=== PATIENT | female | born 1940 | race Caucasian/White ===

== ENCOUNTER 2016-08-31 12:16 | Inpatient (IN) | payer OTHER ==
[~2016-08-31] VITALS: Ht 162.6 cm; Wt 80.3 kg
--- NOTE | 2016-08-31 07:20 | NUR ---
OPENING NOTES REPORT GIVEN AT BEDSIDE BY DAY SHIFT NURSE. PATIENT RESTING IN SEMI-MANCERA'S POSITION, NO S/S OF ACUTE DISTRESS NOTED. RESPIRATIONS EVEN AND UNLABORED. IV FLUIDS INFUSING WITH NO SIGNS OF INFILTRATION NOTED. FAMILY AT BEDSIDE. BED IN LOWEST POSITION, BED ALARM ON, CALL LIGHT WITHIN REACH. WILL CONTINUE TO MONITOR.
--- NOTE | 2016-08-31 12:16 | NUR ---
Patient to ER bed 06 to gown for evaluation. Side rails up. Report given to Alfredo
--- NOTE | 2016-08-31 12:16 | NUR ---
Pt report received from SANDRA Castro. Pt from [facility] r/t diarrhea and C. Difficile x 1 week. Family members state that pt requested to come to [facility] for admit.
--- NOTE | 2016-08-31 12:17 | NUR ---
Pt has 24 GA PIV to LHA. Area appears red and swollen. PIV discontinued with angiocath tip intact, no bleeding, drainage or discharge from site. Bandage applied.
--- NOTE | 2016-08-31 12:17 | NUR ---
Note tara in EDM - 08/31/16 at 1339 by SUDARSHAN Pt has 24 GA PIV to [facility]. Area appears red and swollen. PIV discontinued with angiocath tip intact, no bleeding, drainage or discharge from site. Bandage applied.
[2016-08-31 12:26] VITALS: BP 158/58; PULSE 62; RESP 18; TEMP 97.9; O2SAT 98
[2016-08-31] MEDS ORDERED: ONDANSETRON HCL 4 MG/2 ML VIAL IVP ONE (12:45)
[2016-08-31] MEDS ORDERED: VANCOMYCIN HCL 125 MG CAPSULE PO ONE (12:45)
[2016-08-31] MEDS ORDERED: NS 1000 ML BAG IV ONE (12:45)
--- NOTE | 2016-08-31 12:45 | NUR ---
# 20 gauge angiocath placed to LHA. Use of asceptic technique. Opsite placed over site. Blood return noted. Blood for lab drawn from site. Flushed with 10 cc of normal saline. No evidence of infiltration noted. Patient tolerated well.
[2016-08-31 13:12] LABS: BASOPHILS # (AUTO) 0.2 K/uL (0.0-0.2); BASOPHILS % (AUTO) 1.5 % (0.0-2.0); EOSINOPHILS # (AUTO) 0.2 K/uL (0.0-0.4); EOSINOPHILS % (AUTO) 2.2 % (0.0-4.0); HEMATOCRIT 31.5 % (36-48); HEMOGLOBIN 10.4 g/dL (12.0-16.0); LYMPHOCYTES # (AUTO) 1.4 K/uL (1.0-5.5); LYMPHOCYTES % (AUTO) 13.5 % (20.5-51.5); MEAN CORPUSCULAR HEMOGLOBIN 30 pg (27-31); MEAN CORPUSCULAR HGB CONC 33 % (32-36); MEAN CORPUSCULAR VOLUME 89 fL (79.0-98.0); MONOCYTES # (AUTO) 0.9 K/uL (0.0-1.0); MONOCYTES % (AUTO) 8.4 % (1.7-9.3); NEUTROPHILS # (AUTO) 7.6 K/uL (1.8-7.7); NEUTROPHILS % (AUTO) 74.4 % (40.0-70.0); PLATELET COUNT (AUTO) 452 K/uL (130-430); RED BLOOD CELL COUNT(AUTO) 3.54 MIL/uL (4.2-6.2); RED CELL DISTRIBUTION WIDTH 14.1 % (9.0-15.0); WHITE BLOOD COUNT (AUTO) 10.3 K/uL (4.8-10.8)
[2016-08-31 13:29] LABS: INR 1.2 (0.8-1.2); PROTHROMBIN TIME 13.4 SECS (9.5-12.5)
[2016-08-31 13:46] LABS: ANION GAP 4 (5-15); CALCIUM 8.3 mg/dL (8.4-11.0); CHLORIDE 102 mmol/L (98-107); CREATININE 1.32 mg/dL (0.55-1.30); GLUCOSE 203 mg/dL (70-99); POTASSIUM 2.4 mmol/L (3.5-5.1); SODIUM SERUM 138 mmol/L (136-145); UREA NITROGEN, BLOOD 2 mg/dL (8-21)
[2016-08-31 13:51] LABS: ALANINE AMINOTRANSFERASE 57 U/L (12-78); ALBUMIN 2.8 g/dL (3.4-4.8); ASPARTATE AMINOTRANSFERASE 84 U/L (10-37); TOTAL BILIRUBIN 0.6 mg/dL (0.0-1.0); TOTAL PROTEIN, SERUM 6.3 g/dL (6.4-8.3)
[2016-08-31] MEDS ORDERED: LOVI40 SQ (13:54)
[2016-08-31] MEDS ORDERED: AMLO5TAB4 PO (13:54)
[2016-08-31] MEDS ORDERED: ASPI81TA2 PO (13:54)
[2016-08-31] MEDS ORDERED: LIP40 PO (13:54)
[2016-08-31] MEDS ORDERED: metroNIDAZOLE 500 MG TABLET PO ONE (14:00)
[2016-08-31] MEDS ORDERED: KCL 20 mEq in 100 mL (PREMIX) 100 ML IV ONE (14:30)
--- NOTE | 2016-08-31 14:55 | NUR ---
Patient will be admitted to care of Dr. Guzman. Admitted to med surg unit. Will go to room 133. Summary report printed. Report given to Marylin FLORES.
[2016-08-31 14:59] LABS: BILIRUBIN,URINE NEGATIVE (NEGATIVE); BLOOD, URINE NEGATIVE (NEGATIVE); CLARITY/URINE CLEAR (CLEAR); COLOR,URINE YELLOW (YELLOW); GLUCOSE,URINE NEGATIVE (NEGATIVE); KETONES,URINE NEGATIVE (NEGATIVE); LEUKOCYTE ESTERASE ,URINE TRACE (NEGATIVE); NITRITE, URINE NEGATIVE (NEGATIVE); PH,URINE 6.5 (5.0-8.0); PROTEIN URINE NEGATIVE (NEGATIVE); UROBILINOGEN,URINE 0.2 (0.2-1.0)
--- NOTE | 2016-08-31 15:07 | NUR ---
ADMIT NOTE Received pt from ER to the floor with a diagnosis of c. diff, colitis. Admission process initiated. patient oriented to pain management, safety and call light-teach back done.
[2016-08-31 15:17] LABS: BACTERIA,URINE MANY /HPF (None Seen); MUCUS,URINE None Seen /LPF (None Seen); RBC,URINE NONE SEEN /HPF (0-3)
[2016-08-31 15:43] VITALS: BP 167/85; PULSE 95; RESP 16; TEMP 98.1; O2SAT 99
[2016-08-31 15:52] VITALS: BP 167/85; PULSE 95; RESP 16; TEMP 98.1; O2SAT 99
--- NOTE | 2016-08-31 16:06 | NUR ---
CALLED SPOKE WITH MADISYN TO PAGE DR ADAME PER SANDRA PARKER.
[2016-08-31] MEDS ORDERED: COMMUNICATION ORDER XX ONE (16:45)
--- NOTE | 2016-08-31 16:45 | NUR ---
OPENING NOTES RCEIVED PT IN BED, PT DENIES PAIN, PT C/O OF FEELING COLD AND SHIVERING FROM TIME TO TIME. AFEBRILE, PROVIDED BLANKETS REQUESTED. CALL LIGHT IN REACH, BED IN LOW POSITION. INSTRUCTED TO CALL FOR ASSIST AND PAIN MED ANY TIME
--- NOTE | 2016-08-31 17:03 | NUR ---
CONSULTATION CALLED REASON FOR CONSULT: C-DIFF PERSON WHO WAS CALLED: HOSP EXCHANGED CONSULTING DR: ADI STEIN
[2016-08-31] MEDS ORDERED: POTASSIUM CHLORIDE 60 MEQ in NS 500 ML IV ONE (17:30)
--- NOTE | 2016-08-31 18:00 | NUR ---
CLOSING NOTES, PT IN BED, FAMILY AT BEDSIDE, SET UP FOR DINNER CLEAR LIQUID DIET, 1800 MED OFFERED AND TAKEN. CALL LIGHT IN REACH, BED IN LOW POSTION. IV FLUIDS INFUSING. NO C./O PAIN.
[2016-08-31] MEDS: VANCOMYCIN HCL 250 MG CAPSULE PO SCH ×2 (18:06→23:39)
[2016-08-31] MEDS: D5NS 1,000 ML IV SCH (18:30)
--- NOTE | 2016-08-31 21:20 | NUR ---
ROUNDS NO S/S OF ACUTE DISTRESS NOTED. IV FLUIDS INFUSING WITH NO SIGNS OF INFILTRATION NOTED. IV ANTIBIOTICS INFUSING, PATIENT TOLERATING WELL. FAMILY AT BEDSIDE. BED IN LOWEST POSITION, BED ALARM ON, CALL LIGHT WITHIN REACH. WILL CONTINUE TO MONITOR.
[2016-08-31] MEDS: metroNIDAZOLE 500 mg/NS 100 ML IV SCH (21:35)
[2016-08-31 22:40] VITALS: BP 155/61; PULSE 99; RESP 20; TEMP 97.9; O2SAT 95
--- NOTE | 2016-08-31 23:46 | NUR ---
PAGED: I PAGED PHY. CARVAJAL @ [phone] I SPOKE WITH EL WEAVER MANAGER SOCIAL NUMBER I CALLED: [phone]
--- NOTE | 2016-08-31 23:46 | NUR ---
DR. WEAVER CALLED BACK @ 1354
--- NOTE | 2016-08-31 23:47 | NUR ---
DR. WENDI CEJA PATIENT IS COMPLAINING OF ANXIETY AND REQUESTING MEDICATION. PATIENT STATES, "I NEED MEDICATION FOR ANXIETY RIGHT NOW, CAN YOU PLEASE CALL THE DR."
--- NOTE | 2016-08-31 23:55 | NUR ---
CALLED ORDERS PLACED FOR ANXIETY
[2016-09-01] VITALS (7 sets, daily range): BP systolic 141–168; BP diastolic 59–76; PULSE 94–101; RESP 16–20; TEMP 97.1–99.6; O2SAT 93–100
[2016-09-01] MEDS ORDERED: LORazepam 2 MG/ML VIAL (FOR ER USE) IVP PRN
[2016-09-01] MEDS ORDERED: LORazepam 2 MG/ML VIAL IM PRN (01:15)
--- NOTE | 2016-09-01 01:59 | NUR ---
ROUNDS PATIENT IS SLEEPING WITH VISIBLE RISE AND FALL OF CHEST NOTED. NO ACUTE S/S OF DISTRESS. BED IN LOWEST POSITION, FALL PRECAUTIONS IN PLACE, BED ALARM ON. CALL LIGHT WITHIN REACH. WILL CONTINUE TO MONITOR
--- NOTE | 2016-09-01 03:50 | NUR ---
ROUNDS ASSISTED PATIENT TO BATHROOM. GAIT WAS STEADY WITH ASSIST. PATIENT NOW RESTING IN BED IN SEMI-MANCERA'S NO S/S OF ACUTE DISTRESS NOTED. FALL PRECAUTIONS IN PLACE, WILL CONTINUE TO MONITOR, CALL LIGHT WITHIN REACH.
[2016-09-01] MEDS: D5NS 1,000 ML IV SCH ×3 (04:30→18:31)
--- NOTE | 2016-09-01 06:14 | NUR ---
ROUNDS PATIENT IN BATHROOM WITH ASSIST OF RESEARCH ANIMAL ATTENDANT. GAIT WAS STEADY WITH ASSIST. PATIENT NOW RESTING IN BED IN SEMI-MANCERA'S NO S/S OF ACUTE DISTRESS NOTED. FALL PRECAUTIONS IN PLACE, WILL CONTINUE TO MONITOR, CALL LIGHT WITHIN REACH.
[2016-09-01] MEDS: VANCOMYCIN HCL 250 MG CAPSULE PO SCH ×4 (06:17→23:07)
[2016-09-01] MEDS: metroNIDAZOLE 500 mg/NS 100 ML IV SCH ×3 (06:18→20:39)
[2016-09-01 06:43] LABS: ANION GAP 6 (5-15); CALCIUM 7.9 mg/dL (8.4-11.0); CHLORIDE 106 mmol/L (98-107); CREATININE 1.21 mg/dL (0.55-1.30); GLUCOSE 135 mg/dL (70-99); POTASSIUM 3.1 mmol/L (3.5-5.1); SODIUM SERUM 142 mmol/L (136-145); UREA NITROGEN, BLOOD 3 mg/dL (8-21)
[2016-09-01 06:49] LABS: ALANINE AMINOTRANSFERASE 48 U/L (12-78); ALBUMIN 2.6 g/dL (3.4-4.8); ASPARTATE AMINOTRANSFERASE 55 U/L (10-37); TOTAL BILIRUBIN 0.6 mg/dL (0.0-1.0)
--- NOTE | 2016-09-01 07:05 | NUR ---
CLOSING NOTES PATIENT SLEEPING COMFORTABLY WITH VISIBLE RISE AND FALL OF CHEST. NO S/S OF ACUTE DISTRESS NOTED. IV PATENT AND INFUSING. DAUGHTER AT BEDSIDE. BED IN LOWEST POSITION, BED ALARM ON, CALL LIGHT WITHIN REACH. WILL ENDORSE CARE TO DAY SHIFT NURSE.
--- NOTE | 2016-09-01 08:00 | NUR ---
OPENING NOTE: RECEIVED REPORT FROM NIGHT NURSE. PATIENT IS RESTING COMFORTABLY IN BED. NO S/S OF DISTRESS OR SOB. FAMILY AT BEDSIDE. PATIENT IS ALERT AND ORIENTED, ABLE TO EXPRESS NEEDS, AND ASK FOR ASSISTANCE. VITAL SIGNS WNL, ASSESSMENT COMPLETE. IV IA PATENT AND INFUSING. CALL LIGHT IN REACH, BED IN LOWEST POSITION, AND WILL CONTINUE TO MONITOR.
--- NOTE | 2016-09-01 09:01 | NUR ---
Nutrition Update Jass Scale 16 noted. Pt admitted for C. diff colitis. Diet: clear liquid BMI: 30.4 kg/m2 RD to follow per nutrition care standards.
--- NOTE | 2016-09-01 09:14 | NUR ---
CONSULT GI C-DIFF DR RITCHIE [phone] S/W [place] OFFICE @ [phone]
[2016-09-01] MEDS: ATORVASTATIN 20 MG TABLET PO SCH (09:25)
[2016-09-01] MEDS: amLODIPine BESYLATE 5 MG TABLET PO SCH (09:25)
[2016-09-01] MEDS: POTASSIUM CHLORIDE 20 MEQ/PKT PACKET PO SCH ×2 (09:25→13:37)
[2016-09-01] MEDS: ASPIRIN 81 MG TAB.CHEW PO SCH (09:25)
--- NOTE | 2016-09-01 10:00 | NUR ---
NOTE: PATIENT IS RESTING COMFORTABLY. NO S/S OF DISTRESS OR SOB. PATIENT IS ALERT AND ORIENTED, ABLE TO EXPRESS NEEDS, AND ASK FOR ASSISTANCE. FAMILY AT BEDSIDE. CALL LIGHT IN REACH, BED IN LOWEST POSITION, AND WILL CONTINUE TO MONITOR.
--- NOTE | 2016-09-01 11:17 | NUR ---
Jass scale evaluation: Patient evaluated for a low Jass score of 16. Patient was awake, alert, oriented, and received in a Seng bed with an Isoflex DOUGLAS mattress. Low air loss therapy is initiated. Patient is able to turn in bed independently, and uses bedside commode with assist. Skin is fair; Left lower extremity has multiple areas of bruising secondary to a recent left total hip arthroplasty. Encourage and assist patient as needed with repositioning every 2 hours with pillow support, and offload pressure areas with pillows for pressure redistribution elevate, offload, and flow bilateral heels with pillows. Perform skin care and monitor skin integrity every shift. Maintain patient on a low air loss mattress.
--- NOTE | 2016-09-01 12:00 | NUR ---
NOTE: PATIENT IS RESTING COMFORTABLY IN BED. NO S/S OF DISTRESS OR SOB. PATIENT IS ALERT AND ORIENTED, ABLE TO EXPRESS NEEDS, AND ASK FOR ASSISTANCE. FAMILY AT BEDSIDE. CALL LIGHT IN REACH, BED IN LOWEST POSITION, AND WILL CONTINUE TO MONITOR.
--- NOTE | 2016-09-01 13:30 | NUR ---
DR BRENNA ADAME FOR ORDERS. SPOKE WITH LEIGHA
--- NOTE | 2016-09-01 13:55 | NUR ---
DR. ADAME SPOKE WITH DR. ADAME. FAMILY IS REQUESTING CONSULT WITH DR. ANDRADE. FAMILY STATES PATIENT HAS SARCOIDOSIS AND IS DEVELOPING A COUGHT. DR. ANDRADE WAS ON HER CASE PREVIOUSLY AND SEEING HER TWICE A DAY AND THEY WOULD LIKE HIM TO CONTINUE HIS CARE HERE. DR. ADAME SAID OKAY TO PLACE ORDER FOR PULMONARY CONSULT WITH DR. ANDRADE. ORDERS NOTED AND CARRIED OUT. FAMILY INFORMED.
--- NOTE | 2016-09-01 14:00 | NUR ---
NOTE: PATIENT IS RESTING COMFORTABLY IN BED. NO S/S OF DISTRESS OR SOB. PATIENT IS AWAKE AND ALERT. FAMILY AT BEDSIDE. CALL LIGHT IN REACH, BED IN LOWEST POSITION, AND WILL CONTINUE TO MONITOR.
--- NOTE | 2016-09-01 14:15 | NUR ---
CONSULT PULMO COUGH DR ANDRADE [phone] S/W [place] OFFICE @[phone]
[2016-09-01 16:14] LABS: POTASSIUM 3.9 mmol/L (3.5-5.1)
--- NOTE | 2016-09-01 16:28 | NUR ---
MD BRENNA CEJA FOR CRITICAL LAB VALUE RESULT
[2016-09-01] MEDS ORDERED: MAGNESIUM SULFATE 50 ML IV ONE (16:45)
--- NOTE | 2016-09-01 16:45 | NUR ---
ORDERS DR. ADAME ORDERED MAGNESIUM 2GM IV ONE TIME DOSE. ORDERS NOTED AND CARRIED OUT.
[2016-09-01] MEDS ORDERED: ENOXAPARIN SODIUM 40 MG/0.4 ML SYRINGE SUBCUT SCH (17:45)
[2016-09-01] MEDS ORDERED: D5NS 1,000 ML IV SCH (17:45)
[2016-09-01] MEDS ORDERED: LACTOBACILLUS RHAMNOSUS GG 1 CAP CAPSULE PO ONE (18:15)
[2016-09-01] MEDS ORDERED: COMMUNICATION ORDER XX ONE (18:15)
[2016-09-01] MEDS: MONTELUKAST 10 MG TABLET PO SCH (18:30)
--- NOTE | 2016-09-01 18:50 | NUR ---
CLOSING NOTE: PATIENT IS RESTING COMFORTABLY IN BED. NO S/S OF DISTRESS OR SOB. PATIENT IS ALERT AND ORIENTED, ABLE TO EXPRESS NEEDS, AND ASK FOR ASSISTANCE. FAMILY IS AT BEDSIDE. CALL LIGHT IN REACH, BED IN LOWEST POSITION, AND WILL GIVE REPORT TO NIGHT NURSE.
--- NOTE | 2016-09-01 19:25 | NUR ---
INITIAL ROUNDS RECVD PT IN BED, A/A/O X3 WITH DAUGHTER @ BEDSIDE. NO S/S OF ANY PAIN. IV NOTED TO L HAND G 20, NO INFILTRATE WITH GOOD BLOOD RETURN. BUE ARE STRONG WITH MILD WEAKNESS TO BLE, AMBULATORY WITH WALKER AND WITH ASSIST. DISCUSSED PLAN OF CARE WITH PT AND VERBALIZED UNDERSTANDING. BED IN LOW POSITION WITH CALL LIGHT WITHIN REACH. WILL CONT TO MONITOR
[2016-09-01] MEDS: IPRATROPIUM/ALBUTEROL SULFATE 3 ML AMPUL.NEB INH SCH (20:07)
[2016-09-01] MEDS: LACTOBACILLUS RHAMNOSUS GG 1 CAP CAPSULE PO SCH (20:38)
[2016-09-01] MEDS: ADVAIR INH SCH (20:46)
--- NOTE | 2016-09-01 21:25 | NUR ---
ASSISTED TO COMMODE ASSISTED PT TO COMMODE AND SAFELY BACK TO BED WITH ISHMAEL CHILDERS. NO S/S OF ANY PAIN AND NO DISTRESS NOTED. DAUGHTER @ BEDSIDE.CALL LIGHT WITHIN REACH, WILL CONT TO MONITOR.
--- NOTE | 2016-09-01 23:25 | NUR ---
ROUNDS PT IS RESTING COMFORTABLY WITH DAUGHTER AT BEDSIDE. NO S/S OF ANY PAIN OR DISTRESS NOTED. BED IN LOW POSITION WITH CALL LIGHT WITHIN REACH. WILL CONT TO MONITOR.
[2016-09-02 00:19] VITALS: BP 155/70; PULSE 107; RESP 18; TEMP 99; O2SAT 92
--- NOTE | 2016-09-02 00:19 | NUR ---
FOLLOW-UP ON CONSULTATION PAGED REASON FOR CONSULTATION:C.DIFF, COLITIS WAS CONSULT CALLED?Y PERSON WHO WAS NOTIFIED:MARK CONSULTING PHYSICIAN:EVER COOMBS CITY PLANT SUPERVISOR SPECIALTY:INFEXTIOUS DISEASE CITY PLANT SUPERVISOR PHONE NUMBER:[phone]
--- NOTE | 2016-09-02 01:25 | NUR ---
ASSISTED TO COMMODE PT WAS ASSISTED TO COMMODE BY ISHMAEL CHILDERS. PT REFUSED TO BE ASSISTED BY MALE NURSE D/T BUDDHIST BELIEFS. BED IN LOW POSITION WITH CALL LIGHT WITHIN REACH. WILL CONT TO MONITOR.
--- NOTE | 2016-09-02 03:07 | NUR ---
TEMP 99.8 PT'S DAUGHTER INSISTING THAT HER MOTHER HAS A FEVER. I EXPLAINED TO DAUGHTER THAT WE ONLY CONSIDER FEVER IF TEMP IS 100.4 AND ABOVE. REMOVED 3 BLANKETS FROM PT AND GAVE COOLING MEASURES. WILL RECHECK TEMP AGAIN.
[2016-09-02 04:45] VITALS: BP 158/72; PULSE 96; RESP 18; TEMP 99; O2SAT 92
[2016-09-02] MEDS: VANCOMYCIN HCL 250 MG CAPSULE PO SCH ×4 (06:23→23:10)
[2016-09-02] MEDS: metroNIDAZOLE 500 mg/NS 100 ML IV SCH ×3 (06:23→21:35)
[2016-09-02] MEDS: LEVOTHYROXINE SODIUM 0.05 MG TABLET PO SCH (06:24)
--- NOTE | 2016-09-02 07:00 | NUR ---
FINAL ROUNDS PT IS RESTING @ THIS TIME. NO S/S OF PAIN OR ANY DISTRESS. V/S ARE WNL. ALL NEEDS MET AND ANTICIPATED BY NOC NURSES. BED IN LOW POSITION WITH SIDE RAILS UP X 2 FOR SAFETY. CALL LIGHT WITHIN REACH; ENDORSED.
--- NOTE | 2016-09-02 07:30 | NUR ---
rn notes: patient is aaox 4. afebrile. vss stable. has iv access on the left hand 320.D5ns at 70cc/hr infusing on well. daughter at the bedside. hob of bed elevated. bed in low position. call lights within reach. safety measures maintained. no sob nor distress noted. non productive cough with small phelgm noted. informed patient to [facility] for assistance. still on contact isolation for c dificile precaution.
[2016-09-02 07:34] LABS: ALANINE AMINOTRANSFERASE 38 U/L (12-78); ALBUMIN 2.6 g/dL (3.4-4.8); ANION GAP 4 (5-15); ASPARTATE AMINOTRANSFERASE 33 U/L (10-37); CALCIUM 7.8 mg/dL (8.4-11.0); CHLORIDE 104 mmol/L (98-107); CREATININE 0.96 mg/dL (0.55-1.30); GLUCOSE 138 mg/dL (70-99); SODIUM SERUM 140 mmol/L (136-145); TOTAL BILIRUBIN 0.5 mg/dL (0.0-1.0); TOTAL PROTEIN, SERUM 5.7 g/dL (6.4-8.3); UREA NITROGEN, BLOOD 1 mg/dL (8-21)
[2016-09-02 07:40] LABS: POTASSIUM 2.9 mmol/L (3.5-5.1)
[2016-09-02 07:48] LABS: BASOPHILS % (AUTO) 0.1 % (0.0-2.0); EOSINOPHILS # (AUTO) 0.3 K/uL (0.0-0.4); EOSINOPHILS % (AUTO) 3.5 % (0.0-4.0); HEMATOCRIT 31.4 % (36-48); HEMOGLOBIN 10.2 g/dL (12.0-16.0); LYMPHOCYTES # (AUTO) 1.5 K/uL (1.0-5.5); LYMPHOCYTES % (AUTO) 16.6 % (20.5-51.5); MEAN CORPUSCULAR HEMOGLOBIN 29 pg (27-31); MEAN CORPUSCULAR HGB CONC 32 % (32-36); MEAN CORPUSCULAR VOLUME 90 fL (79.0-98.0); MONOCYTES % (AUTO) 10.8 % (1.7-9.3); NEUTROPHILS # (AUTO) 6.1 K/uL (1.8-7.7); PLATELET COUNT (AUTO) 403 K/uL (130-430); RED BLOOD CELL COUNT(AUTO) 3.49 MIL/uL (4.2-6.2); RED CELL DISTRIBUTION WIDTH 14.4 % (9.0-15.0); WHITE BLOOD COUNT (AUTO) 8.9 K/uL (4.8-10.8)
--- NOTE | 2016-09-02 08:03 | NUR ---
PATIENT HAS NON PRODUCTIVE COUGH NOTED. BUT NO SOB NOTED. VSS STABLE. DAUGHTER AT THE BEDSIDE.
[2016-09-02 08:29] VITALS: BP 157/77; PULSE 97; RESP 18; TEMP 98.9; O2SAT 92
--- NOTE | 2016-09-02 09:00 | NUR ---
dr bullock is aware of the coughing status. he saw and made orders.
[2016-09-02] MEDS: IPRATROPIUM/ALBUTEROL SULFATE 3 ML AMPUL.NEB INH SCH ×3 (09:04→20:13)
[2016-09-02] MEDS: amLODIPine BESYLATE 5 MG TABLET PO SCH (09:35)
[2016-09-02] MEDS: LACTOBACILLUS RHAMNOSUS GG 1 CAP CAPSULE PO SCH ×2 (09:35→21:36)
[2016-09-02] MEDS: ASPIRIN 81 MG TAB.CHEW PO SCH (09:35)
[2016-09-02] MEDS: CLOPIDOGREL BISULFATE 75 MG TABLET PO SCH (09:36)
[2016-09-02] MEDS: ATORVASTATIN 20 MG TABLET PO SCH (09:36)
--- NOTE | 2016-09-02 09:37 | NUR ---
due medication given. made comfortable. assists on adls.
[2016-09-02 12:31] VITALS: BP 140/63; PULSE 100; RESP 16; TEMP 98; O2SAT 97
--- NOTE | 2016-09-02 13:23 | NUR ---
patient is sitting on the chair. son is at the bedside. patient is stable. no pain nor distress noted.
[2016-09-02] MEDS: BENZONATATE 100 MG CAPSULE (TESSALON) PO PRN (13:27)
[2016-09-02] MEDS: POTASSIUM CHLORIDE 20 MEQ TAB.PRT.SR PO SCH ×2 (13:27→15:16)
[2016-09-02] MEDS: D5NS 1,000 ML IV SCH (13:30)
[2016-09-02] MEDS: ADVAIR INH SCH ×2 (13:33→21:36)
[2016-09-02] MEDS ORDERED: MAGNESIUM SULFATE 50 ML IV ONE (14:45)
[2016-09-02] MEDS: POTASSIUM CHLORIDE 10 MEQ in 0.45% NACL 1,000 ML IV SCH (15:18)
--- NOTE | 2016-09-02 15:30 | NUR ---
magnesium sulfate 2 grams iv given on the right forearm.
--- NOTE | 2016-09-02 16:20 | NUR ---
patient is asleep at this time
[2016-09-02 16:36] VITALS: BP 144/69; PULSE 97; RESP 17; TEMP 97.8; O2SAT 97
[2016-09-02] MEDS: MONTELUKAST 10 MG TABLET PO SCH (17:04)
--- NOTE | 2016-09-02 17:04 | NUR ---
patient sitting in bed. stable. no pain other daughter at the bedside.
--- NOTE | 2016-09-02 18:18 | NUR ---
patient is eating at the bedside. hob elevated. with the daughter at the bedside.
--- NOTE | 2016-09-02 19:15 | NUR ---
OPENING NOTES REPORT GIVEN AT BEDSIDE BY DAY SHIFT NURSE. PATIENT IS RESTING IN SEMI-MANCERA'S POSITION WITH DAUGHTER AT BEDSIDE. IV IS PATENT AND RUNNING. NO S/S OF DISTRESS NOTED. BED IN LOWEST POSITION, BED ALARM ON, CALL LIGHT WITHIN REACH. WILL CONTINUE TO MONITOR.
--- NOTE | 2016-09-02 19:30 | NUR ---
sbar report given to incoming nurse Misty Ardon.
[2016-09-02 19:55] VITALS: BP 136/54; PULSE 113; RESP 30; TEMP 99; O2SAT 90
--- NOTE | 2016-09-02 20:20 | NUR ---
ROUNDS PATIENT IS BREATHING SHALLOW WITH RESPIRATIONS OF 32 AND OXYGEN SATURATION OF 88-89%. LUNGS HAVE A WHEEZE BILATERAL IN UPPER LOBES, AND CRACKLES NOTED IN LOWER LOBES. PATIENT DOES HAVE A HISTORY OF COPD AND SARCOIDOSIS. O2 APPLIED AT 2L BY NASAL CANNULA. FALL PRECAUTIONS IN PLACE, WILL CONTINUE TO MONITOR FREQUENTLY.
--- NOTE | 2016-09-02 21:33 | NUR ---
ROUNDS PATIENT IS SITTING IN SEMI-MANCERA'S POSITION WITH NASAL CANNULA AT 2L. OXYGEN STAURATIONS ARE. BREATHING IS EVEN AND UNLABORED. PATIENT IS COUGHING. NO S/S OF ACUTE DISTRESS NOTED. WILL CONTINUE TO MONITOR. FALL PREACUTIONS IN PLACE AND DAUGHTER AT BEDSIDE. CALL LIGHT WITHIN REACH.
--- NOTE | 2016-09-03 | NUR ---
ROUNDS PATIENT BREATHING LABORED AND EVEN. OXYGEN TITRATION LOWERED TO 1L AND PATIENT O2 SAT AT 93%. TEMPERATURE HAS RISEN FROM 99F AT 1955 TO 99.7, COOLING MEASURES OF WET CLOTH AND ICE PACKS TAKEN. PATIENT IS CLAMMY AND WARM TO TOUCH. PATIENT STATES SHE IS SHIVERING. WILL CONTINUE TO MONITOR TEMPERATURE FREQUENTLY. DAUGHTER AT BEDSIDE. FALL PRECAUTIONS IN PLACE, BED ALARM ON, CALL LIGHT WITHIN REACH.
[2016-09-03] MEDS: BENZONATATE 100 MG CAPSULE (TESSALON) PO PRN ×3 (00:11→18:26)
[2016-09-03 00:49] VITALS: BP 142/62; PULSE 113; RESP 16; TEMP 99.7; O2SAT 93
--- NOTE | 2016-09-03 02:00 | NUR ---
ROUNDS PATIENT RESTING, SLEEPING, WITH VISIBLE RISE AND FALL OF CHEST NOTED. NASAL CANNULA IN PLACE, IV FLUIDS RUNNING. NO S/S OF DISTRESS NOTED. FALL PRECAUTIONS IN PLACE. BED ALARM ON, CALL LIGHT WITHIN REACH. WILL CONTINUE TO MONITOR FREQUENTLY.
--- NOTE | 2016-09-03 02:50 | NUR ---
PAGED FOR ORDERS PATIENT IS ANXIOUS AND REQUESTED SOMETHING FOR ANXIETY. THERE ARE NO MEDS FOR ANXIETY, PAGEJan FOR ORDERS
[2016-09-03 03:58] VITALS: BP 133/56; PULSE 111; RESP 15; TEMP 97.5; O2SAT 96
--- NOTE | 2016-09-03 04:03 | NUR ---
PAGED DR ADAME FOR ORDERS, SPOKE WITH CHRISTI, PHONE NUMBER
--- NOTE | 2016-09-03 04:03 | NUR ---
PAGED FOR ORDERS, 2ND PAGE PATIENT IS ANXIOUS AND REQUESTED SOMETHING FOR ANXIETY. THERE ARE NO MEDS FOR ANXIETY, PAGED FOR ORDERS
--- NOTE | 2016-09-03 04:20 | NUR ---
PAGED FOR ORDERS, 3RD PAGE PATIENT IS ANXIOUS AND REQUESTED SOMETHING FOR ANXIETY. THERE ARE NO MEDS FOR ANXIETY, PAGED FOR ORDERS
--- NOTE | 2016-09-03 04:24 | NUR ---
PAGED DR ADAME Spoke with Alfredo , phone number [phone]
--- NOTE | 2016-09-03 04:30 | NUR ---
DR. CEJA WITH ORDERS ORDERS FOR ATIVAN Q4 IVP 0.25MG PRN
[2016-09-03] MEDS ORDERED: LORazepam 2 MG/ML VIAL IM PRN (04:45)
--- NOTE | 2016-09-03 04:53 | NUR ---
ANTI-ANXIETY MEDICATION PATIENT GIVEN THE ORDERED DOSE OF ANTI-ANXIETY MEDICATION. WILL REASSESS. NO S/S OF ACUTE DISTRESS NOTED. FALL PRECAUTIONS IN PLACE. DAUGHTER AT BEDSIDE. CALL LIGHT WITHIN REACH. WILL CONTINUE TO MONITOR FREQUENTLY.
[2016-09-03] MEDS: VANCOMYCIN HCL 250 MG CAPSULE PO SCH ×3 (06:17→18:21)
[2016-09-03] MEDS: LEVOTHYROXINE SODIUM 0.05 MG TABLET PO SCH (06:17)
[2016-09-03] MEDS: metroNIDAZOLE 500 mg/NS 100 ML IV SCH ×3 (06:18→21:31)
--- NOTE | 2016-09-03 06:27 | NUR ---
CLOSING NOTES PATIENT IS RESTING, AWAKE AND ALERT. DAUGHTER AT BEDSIDE, PATIENT STATES SHE IS NERVOUS. IV FLUIDS AND ANTIBIOTICS INFUSING, PATIENT TOLERATING WELL. BED IN LOWEST POSITION, BED ALARM ON, CALL LIGHT IN RIGHT HAND. WILL ENDORSE CARE TO DAY SHIFT.
--- NOTE | 2016-09-03 06:45 | NUR ---
PAIN PATIENT IS COMPLAINING OF PAIN 7/10 THROUGHOUT LEFT LEG. CURRENTLY NO PAIN MEDS ARE ORDERE. WILL PAGE FOR ORDERS.
--- NOTE | 2016-09-03 06:54 | NUR ---
DR. ADAME PAGED FOR ORDERS
--- NOTE | 2016-09-03 06:55 | NUR ---
DR. ADAME CALLED WITH ORDERS FOR PAIN MEDICATION.
[2016-09-03 06:56] LABS: ANION GAP 5 (5-15); CALCIUM 8.1 mg/dL (8.4-11.0); CHLORIDE 104 mmol/L (98-107); CREATININE 0.91 mg/dL (0.55-1.30); GLUCOSE 128 mg/dL (70-99); POTASSIUM 4.3 mmol/L (3.5-5.1); SODIUM SERUM 138 mmol/L (136-145); UREA NITROGEN, BLOOD 3 mg/dL (8-21)
[2016-09-03] MEDS ORDERED: HYDROcodone/ACETAMIN 5-325 MG TAB (NORCO/ VICODIN) PO PRN (07:00)
--- NOTE | 2016-09-03 07:20 | NUR ---
ADMINISTERED PAIN MEDICATION, WILL ENDORSE REASSESSMENT TO DAY SHIFT NURSE.
--- NOTE | 2016-09-03 07:30 | NUR ---
Initial Notes Pt asleep. No signs of facial grimacing for pain or discomfort. No distress noted. Daughter at bedside. Encouraged to call for assistance. Will monitor.
[2016-09-03 08:35] VITALS: BP 145/66; PULSE 100; RESP 21; TEMP 97.2; O2SAT 92
--- NOTE | 2016-09-03 09:00 | NUR ---
AM Notes Pt aaox4 but Belarusian speaking only. No complaints of pain or discomfort at this time. No sob, difficulty breathing or distress noted. O2 via nasal canula @ 1L in place. Healing left hip incision noted. Bilateral scd in place. Educated about fall and safety precautions. Encouraged to call for assistance. Call light within reach. Will monitor.
--- NOTE | 2016-09-03 09:00 | NUR ---
Dr. Sveta MYERS doing rounds. Plan of care discussed with daughter and patient.
[2016-09-03] MEDS: IPRATROPIUM/ALBUTEROL SULFATE 3 ML AMPUL.NEB INH SCH ×3 (09:16→21:12)
--- NOTE | 2016-09-03 10:00 | NUR ---
Rounds Pt asleep. No signs of facial grimacing for pain or discomfort. No distress noted. Daughter at bedside. Will monitor.
[2016-09-03] MEDS: ADVAIR INH SCH ×2 (10:14→21:30)
[2016-09-03] MEDS: ATORVASTATIN 20 MG TABLET PO SCH (10:15)
[2016-09-03] MEDS: ASPIRIN 81 MG TAB.CHEW PO SCH (10:16)
[2016-09-03] MEDS: CLOPIDOGREL BISULFATE 75 MG TABLET PO SCH (10:16)
[2016-09-03] MEDS: amLODIPine BESYLATE 5 MG TABLET PO SCH (10:16)
[2016-09-03] MEDS: LACTOBACILLUS RHAMNOSUS GG 1 CAP CAPSULE PO SCH ×2 (10:16→21:30)
--- NOTE | 2016-09-03 11:35 | NUR ---
INSPECTOR MULTIFOCAL LENS called and spoke with PA Foreign Trade Teacher, Carmen ([phone]), to inform her of pt's discharge order. Carmen states that she is aware and is following up regarding pt's discharge needs.
[2016-09-03 12:33] VITALS: BP 142/64; PULSE 94; RESP 17; TEMP 97.8; O2SAT 95
--- NOTE | 2016-09-03 12:34 | NUR ---
Rounds Pt awake assisted to bedside commode. No complaints of pain or discomfort. No distress noted. Assisted back to bed and kept comfortable. Encouraged to call for assistance. Will monitor.
--- NOTE | 2016-09-03 13:50 | NUR ---
CALLED VASHTI MYERS, DR RITCHIE, RE: CLEARANCE TO BE DISCHARGE TO HOME. SPOKE TO QUEENIE
--- NOTE | 2016-09-03 13:51 | NUR ---
CALLED RUG CLIPPER, DR DON, RE: CLEARANCE TO DISCHARGE PT HOME. SPOKE TO MARIA DEL CARMEN
--- NOTE | 2016-09-03 13:59 | NUR ---
Dr. Bangura Called and spoke with MD if patient cleared to be discharged home. MD ordered patient is cleared to be discharged home.
--- NOTE | 2016-09-03 14:08 | NUR ---
Dr. Lopes Called and spoke with MD. From her stand point patient is cleared to be discharged. MD will be coming in an hour.
--- NOTE | 2016-09-03 15:54 | NUR ---
Rounds Pt asleep. No significant changes noted. Kept comfortable. Will continue to monitor.
[2016-09-03 16:01] VITALS: BP 139/64; PULSE 92; RESP 16; TEMP 97.6; O2SAT 95
[2016-09-03] MEDS: MONTELUKAST 10 MG TABLET PO SCH (18:21)
--- NOTE | 2016-09-03 18:37 | NUR ---
Page Dr. Guzman for orders Spoke with Faisal, Phone number [phone]
--- NOTE | 2016-09-03 18:45 | NUR ---
Closing Notes Pt awake resting in bed with no significant changes noted. Kept comfortable. Encouraged to call for assistance. Call light within reach. Will endorse care to incoming nurse.
--- NOTE | 2016-09-03 19:29 | NUR ---
paged Dr. Guzman (Dr. Jackson digital controls technical officer) Spoke with Karen, phone [phone]
--- NOTE | 2016-09-03 19:50 | NUR ---
INITIAL NOTES: PT A/O X3, SYRIAC SPEAKING, FAMILY AT BEDSIDE ; NOT IN ANY ACUTE DISTRESS; VITALS ARE STABLE ; DENIED ANY PAIN OR DISCOMFORT AT THIS TIME; ASSESSMENT DONE ; NOTICED BRUISES TO BOTH ARMS , THIGH, AND ABDOMEN ; LEFT HIP WITH HEALED INCISION;PT IS COUGHING OCCASIONALLY , MEDICATED EARLIER ; ON ROOM AIR AT THIS TIME; 91% ,PT HAS THE H/O COPD ; O2 NOTED AT BEDSIDE , WILL MONITOR ; BED IN LOW AND LOCK POSITION ; CALL ARREOLA IN REACH . WILL CONTINUE TO MONITOR. Addendum: 09/04/16 at 0040 by Justine Catalan RN FAMILY STATED THAT PT NEEDS ATIVAN , SHE GETS ANXIOUS AT TIMES , INFORMED DAUGHTER THAT THERE IA AN ORDER FOR ATIVAN IM ,WILL GIVE WHEN SHE GET ANXIOUS , DAUGHTER STATED THEY DONT WANT TO GIVE HER IM ; INFORMED FAMILY THAT WILL CALL MD TO GET A NEW ORDER .
[2016-09-03 20:00] VITALS: BP 148/65; PULSE 102; RESP 18; TEMP 98.8; O2SAT 91
--- NOTE | 2016-09-03 20:19 | NUR ---
paged Dr. Monroe for orders [phone], spoke with Alfredo
--- NOTE | 2016-09-03 20:40 | NUR ---
CALLED BACK : DR WEAVER CALLED BACK ; INFORMED MD THAT ; PER FAMILY PT GET ANXIOUS SOME TIMES AND NEEDS ATIVAN , PER THE ORDER ATIVAN 0.25 MG IS IM , BUT THE FAMILY DON'T WANT TO GIVE HER IM DOSE . MD ORDERED TO CHANGE THE ORDER TO ATIVAN 0.5 MG PO Q6HRS PRN
[2016-09-03] MEDS: POTASSIUM CHLORIDE 10 MEQ in 0.45% NACL 1,000 ML IV SCH (21:32)
--- NOTE | 2016-09-03 21:35 | NUR ---
MEDICATION: DUE MEDS GIVEN ; PT IS COMFORTABLE ; NOT IN ANY ACUTE DISTRESS ; WILL CONTINUE TO MONITOR.
[2016-09-04] VITALS (7 sets, daily range): BP systolic 144–159; BP diastolic 67–74; PULSE 102–115; RESP 17–22; TEMP 97.2–98.6; O2SAT 92–96
--- NOTE | 2016-09-04 | NUR ---
RN NOTES: PT FAMILY CALLED AND STATED THAT SHE IS WET , PT CLEANED , LINEN AND CHUX CHANGED ;PT TURNED AND REPOSITIONED ; AFTER THAT PT COUGHED AND VOMITED 25 CC WITH PHELM ; ON ROOM AIR SAT 92 % AT THIS TIME ; WILL MONITOR PT ; PT STATED SHE FEELS COMFORTABLE NOW
[2016-09-04] MEDS: VANCOMYCIN HCL 250 MG CAPSULE PO SCH ×4 (00:11→17:55)
--- NOTE | 2016-09-04 01:41 | NUR ---
RN ROUNDS: PT IS SLEEPING,NOT IN ANY ACUTE DISTRESS; DAUGHTER AT BEDSIDE ; WILL CONTINUE TO MONITOR.
[2016-09-04] MEDS: BENZONATATE 100 MG CAPSULE (TESSALON) PO PRN ×3 (02:00→16:36)
--- NOTE | 2016-09-04 02:20 | NUR ---
RN NOTES: ASSISTED PT TO THE BEDSIDE COMMODE WITH ASSISTANCE ; PT VOIDED WELL ; CLEANED PT , PT STATED SHE WANTS TO SIT ; ASSISTED PT TO CHAIR ; PT IS COMFORTABLE ; NOT IN ANY ACUTE DISTRESS; PT ASKED FOR ATIVAN , INFORMED PT THAT WILL GIVE IT ONCE SHE IS BACK TO BED . INFORMED AN TO MONITOR PT WHILE RN GOING FOR BREAK .
[2016-09-04] MEDS: LORazepam 1 MG TABLET PO PRN ×3 (03:02→20:38)
--- NOTE | 2016-09-04 03:03 | NUR ---
MEDICATION: PT IS LYING ON THE BED , AWAKE , PER ORDER ATIVAN GIVEN TO THE PATIENT ,DAUGHTER STATED PT VOMITED AGAIN A LITTLE ; WILL MONITOR PT .
--- NOTE | 2016-09-04 03:28 | NUR ---
RN NOTES: NOTICED THAT PTS O2 SAT IS DROPPING WHILE SLEEPING, PLACED PT BACK TO O2 2L NC ; SAT WENT UP TO 95% ; WILL CONTINUE TO MONITOR PT .
--- NOTE | 2016-09-04 04:49 | NUR ---
RN NOTES: ASSISTED PT TO THE BSC , PT VOIDED WELL , LINEN , CHUX AND GOWN CHANGED ; ASSISTED PT BACK TO BED ; PT IS COMFORTABLE . WILL CONTINUE TO MONITOR.
--- NOTE | 2016-09-04 05:20 | NUR ---
RN NOTES: ASSISTED PT TO THE BSC , PT VOIDED WELL , CHUX CHANGED ; ASSISTED PT BACK TO BED ; PT IS COMFORTABLE . WILL CONTINUE TO MONITOR.
[2016-09-04] MEDS: metroNIDAZOLE 500 mg/NS 100 ML IV SCH ×3 (06:04→20:38)
[2016-09-04] MEDS: LEVOTHYROXINE SODIUM 0.05 MG TABLET PO SCH (06:07)
--- NOTE | 2016-09-04 06:49 | NUR ---
CLOSING NOTES: PT IS SLEEPING COMFORTABLY; NOT IN ANY ACUTE DISTRESS; NO SIGNIFICANT CHANGES IN THE CONDITION ; ON ROOM AIR AT THIS TIME.WILL CONTINUE TO MONITOR AND WILL ENDORSE TO NEXT SHIFT NURSE.
--- NOTE | 2016-09-04 07:30 | NUR ---
Initial Note RECEIVED PATIENT FROM CYTOLOGY SUPERVISOR NURSE, PATIENT IS UP, SITTING ON EDGE OF BED, DAUGHTER IS AT BEDSIDE, NO SIGNS OF DISTRESS, NO COMPLAINTS OF PAIN OR DISCOMFORT, ASSESSMENT COMPLETE, PATIENT IS ALERT AND ORIENTED X 4, ON ROOM AIR AT 92%, PATIENT HAS IV ON RIGHT FOREARM WITH FLUIDS INFUSING, NO SIGNS OF INFILTRATION NOTED, PATIENT HAS BRUISING ON BOTH ARMS, THIGHS, AND LOWER RIGHT ABDOMEN, INSTRUCTED PATIENT TO USE CALL ARREOLA IF ASSISTANCE IS NEEDED, PATIENT VERBALIZED UNDERSTANDING, CALL ARREOLA LEFT IN HAND, BED IN LOWEST POSITION, BED ALARM ON, TWO SIDE RAILS UP FOR PATIENT'S SAFETY, FALL PRECAUTIONS IN PLACE, WILL CONTINUE TO MONITOR PATIENT.
[2016-09-04] MEDS: ADVAIR INH SCH ×2 (08:12→21:05)
[2016-09-04] MEDS: ATORVASTATIN 20 MG TABLET PO SCH (08:12)
[2016-09-04] MEDS: LACTOBACILLUS RHAMNOSUS GG 1 CAP CAPSULE PO SCH ×2 (08:13→20:37)
[2016-09-04] MEDS: amLODIPine BESYLATE 5 MG TABLET PO SCH (08:13)
[2016-09-04] MEDS: ASPIRIN 81 MG TAB.CHEW PO SCH (08:13)
[2016-09-04] MEDS: CLOPIDOGREL BISULFATE 75 MG TABLET PO SCH (08:13)
--- NOTE | 2016-09-04 08:15 | NUR ---
MEDICATIONS MORNING MEDICATIONS GIVEN TO PATIENT, EDUCATED PATIENT AND DAUGHTER AT BEDSIDE ON POTENTIAL SIDE EFFECTS OF MEDICATIONS, BOTH VERBALIZED UNDERSTANDING, NO OTHER NEEDS AT THIS TIME, WILL CONTINUE TO MONITOR, CALL ARREOLA LEFT IN PATIENT'S HAND, FALL PRECAUTIONS IN PLACE.
--- NOTE | 2016-09-04 09:58 | NUR ---
RN ROUNDS PATIENT IS CURRENTLY BEING SEEN BY PHYSICAL THERAPY, WILL CONTINUE TO MONITOR PATIENT
[2016-09-04] MEDS: IPRATROPIUM/ALBUTEROL SULFATE 3 ML AMPUL.NEB INH SCH ×2 (10:20→15:38)
--- NOTE | 2016-09-04 11:30 | NUR ---
DR. OWEN WEAVER SEEN PATIENT, PATIENT AND FAMILY MEMBERS EXPRESSED CONCERNS ABOUT MOTHER'S INCREASED COUGHING AND WEAKNESS, DR. CHARLES WAS ALSO HERE AND SEEN THE PATIENT, DR. CHARLES ORDERED FOR PATIENT TO HAVE ONE TIME DOSE OF LASIX IV PUSH, PREDNISONE 5MG DAILY AND HE ASLO ORDERED A CXR, PER DR. WEAVER PATIENT WILL NOT BE DISCHARGED AT THIS TIME, WILL FOLLOW UP
--- NOTE | 2016-09-04 11:32 | NUR ---
PAGED DR WEAVER (PHYS ASSOC) , ESTEFANI ASTUDILLO
--- NOTE | 2016-09-04 11:48 | NUR ---
PAGED DR WEAVER, NEW UPDATE/ORDERS
--- NOTE | 2016-09-04 12:00 | NUR ---
RN ROUNDS ASSISTED PATIENT BACK TO BED WITH HELP OF ADN NURSE, PATIENT STATED SHE WAS READY TO LIE BACK DOWN, GETTING SLEEPY WHILE SITTING IN CHAIR, NO OTHER NEEDS AT THIS TIME, CALL ARREOLA WITHIN REACH, FALL PRECAUTIONS IN PLACE, WILL CONTINUE TO MONITOR PATIENT.
--- NOTE | 2016-09-04 13:22 | NUR ---
RN ROUNDS ASSISTED PATIENT BACK TO BED FROM BEDSIDE COMMODE, PATIENT TOLERATED FAIRLY, INSTRUCTED PATIENT TO USE CALL ARREOLA IF ASSISTANCE IS NEEDED, PATIENT AND FAMILY VERBALIZED UNDERSTANDING, WILL CONTINUE TO MONITOR PATIENT. FALL PRECAUTIONS IN PLACE.
[2016-09-04] MEDS ORDERED: FUROSEMIDE 20 MG/2 ML VIAL IVP ONE (13:45)
[2016-09-04] MEDS ORDERED: PREDNISONE 5 MG TABLET PO ONE (14:15)
--- NOTE | 2016-09-04 14:25 | NUR ---
RN ROUNDS PATIENT RECEIVED MEDICATIONS PER ORDERED BY PULMICHAEL SHETTY AND DR. WEAVER, EDUCATED PATIENT AND FAMILY MEMBERS OF POTENTIAL SIDE EFFECTS, BOTH VERBALIZED UNDERSTANDING, CALL [facility] LEFT NEXT TO PATIENT HAND, BED IN LOWEST POSITION, TWO SIDE RAILS UP, FALL PRECAUTIONS IN PLACE, WILL CONTINUE TO MONITOR PATIENT.
--- NOTE | 2016-09-04 15:05 | NUR ---
RN ROUNDS PATIENT IS STATING SHE IS GETTING VERY ANXIOUS, PRN MEDICATION WAS GIVEN WILL REASSESS
[2016-09-04] MEDS ORDERED: NON-FORMULARY MEDICATION PO SCH (16:10)
[2016-09-04] MEDS ORDERED: FAMOTIDINE 20 MG TABLET PO ONE (16:15)
--- NOTE | 2016-09-04 17:36 | NUR ---
RN ROUNDS PATIENT IS CURRENTLY UP TALKING TO FAMILY WHO IS AT BEDSIDE, NO NEEDS AT THIS TIME, WILL CONTINUE TO MONITOR PATIENT.
[2016-09-04] MEDS: MONTELUKAST 10 MG TABLET PO SCH (17:55)
--- NOTE | 2016-09-04 18:45 | NUR ---
CLOSING NOTES PATIENT IS CURRENTLY RESTING IN BED, NO COMPLAINTS OF PAIN, NO SIGNS OF DISTRESS NOTED, SON IS AT BEDSIDE, ALL NEEDS MET, CALL ARREOLA LEFT IN PATIENT'S HAND, BED IN LOWEST POSITION, BED ALARM ON, TWO SIDE RAILS UP, FALL PRECAUTIONS IN PLACE.
--- NOTE | 2016-09-04 19:52 | NUR ---
PM ASSESSMENT PT. A/OX4, VIETNAMESE SPEAKING, VITAL SIGNS STABLE, NO DISTRESS NOTED, DENIES PAIN. FAMILY AT BEDSIDE UPDATED WITH PLAN OF CARE, CALL LIGHT WITHIN REACH, WILL CONTINUE TO MONITOR.
[2016-09-04] MEDS: FAMOTIDINE 20 MG TABLET PO SCH (20:38)
--- NOTE | 2016-09-04 21:30 | NUR ---
IV RESTART IV TO RFA INFILTRATED, NEW IV STARTED ON R. OLESYA 22G.
--- NOTE | 2016-09-04 23:30 | NUR ---
RN ROUNDS PT. RESTING QUIETLY, VITAL SIGNS STABLE, NO DISTRESS NOTED, DENIES PAIN, CALL LIGHT WITHIN REACH, WILL CONTINUE TO MONITOR.
[2016-09-05 00:27] VITALS: BP 136/57; PULSE 111; RESP 18; TEMP 97; O2SAT 92
--- NOTE | 2016-09-05 01:00 | NUR ---
RN ROUNDS PT. RESTING QUIETLY, VITAL SIGNS STABLE, NO DISTRESS NOTED, DENIES PAIN, CALL LIGHT WITHIN REACH, WILL CONTINUE TO MONITOR.
[2016-09-05] MEDS: VANCOMYCIN HCL 250 MG CAPSULE PO SCH ×3 (01:41→11:38)
[2016-09-05] MEDS: BENZONATATE 100 MG CAPSULE (TESSALON) PO PRN ×2 (01:42→06:40)
[2016-09-05] MEDS: LORazepam 1 MG TABLET PO PRN (01:42)
--- NOTE | 2016-09-05 03:00 | NUR ---
RN ROUNDS PT. RESTING QUIETLY, VITAL SIGNS STABLE, NO DISTRESS NOTED, DENIES PAIN, CALL LIGHT WITHIN REACH, WILL CONTINUE TO MONITOR.
[2016-09-05 04:00] VITALS: BP 137/74; PULSE 113; RESP 20; TEMP 97
--- NOTE | 2016-09-05 05:00 | NUR ---
RN ROUNDS PT. RESTING QUIETLY, VITAL SIGNS STABLE, NO DISTRESS NOTED, DENIES PAIN, CALL LIGHT WITHIN REACH, WILL CONTINUE TO MONITOR.
[2016-09-05] MEDS: metroNIDAZOLE 500 mg/NS 100 ML IV SCH (06:08)
[2016-09-05] MEDS: LEVOTHYROXINE SODIUM 0.05 MG TABLET PO SCH (06:09)
--- NOTE | 2016-09-05 06:34 | NUR ---
CLOSING NOTES PT. IS COUGHING THIS MORNING, TESSLALON PEARLE TO BE GIVEN ORDERED. VITAL SIGNS STABLE, IV ACCESS PATENT AND BENIGN.
--- NOTE | 2016-09-05 07:20 | NUR ---
Initial Note PATIENT IS RESTING IN BED CURRENTLY UP, DAUGHTER IS AT BEDSIDE, NO SIGNS OF DISTRESS NOTED, PATIENT HAS NO COMPLAINTS OF PAIN, JUST COUGHING, COUGH MEDICATIONS WAS GIVEN TO HELP WITH COUGH, ASSESSMENT COMPLETE, PATIENT HAS IV ON RIGHT HAND WITH ANTIBIOTICS RUNNING , NO SIGNS OF INFILTRATION NOTED, INSTRUCTED PATIENT TO USE CALL ARREOLA IF ASSISTANCE IS NEEDED, PATIENT VERBALIZED UNDERSTANDING, CALL ARREOLA LEFT IN HAND, BED IN LOWEST POSITION, BED ALARM ON, TWO SIDE RAILS UP FOR PATIENT'S SAFETY, FALL PRECAUTIONS IN PLACE, WILL CONTINUE TO MONITOR PATIENT.
[2016-09-05 08:06] VITALS: BP 142/71; PULSE 103; RESP 16; TEMP 97.3; O2SAT 92
[2016-09-05] MEDS: ATORVASTATIN 20 MG TABLET PO SCH (08:36)
[2016-09-05] MEDS: LACTOBACILLUS RHAMNOSUS GG 1 CAP CAPSULE PO SCH (08:37)
[2016-09-05] MEDS: ASPIRIN 81 MG TAB.CHEW PO SCH (08:37)
[2016-09-05] MEDS: CLOPIDOGREL BISULFATE 75 MG TABLET PO SCH (08:37)
[2016-09-05] MEDS: FAMOTIDINE 20 MG TABLET PO SCH (08:38)
[2016-09-05] MEDS: ADVAIR INH SCH (08:38)
[2016-09-05] MEDS: amLODIPine BESYLATE 5 MG TABLET PO SCH (08:40)
--- NOTE | 2016-09-05 08:45 | NUR ---
MEDICATIONS PATIENT RECEIVED MORNING MEDICATIONS, REEDUCATED PATIENT AND PATIENT'S DAUGHTER ON POTENTIAL SIDE EFFECTS OF MEDICATIONS, BOTH VERBALIZED UNDERSTANDING, NO OTHER NEEDS AT THIS TIME, PATIENT IS CURRENTLY SITTING UP IN CHAIR NEXT TO BEDSIDE, WILL CONTINUE TO MONITOR, CALL ARREOLA LEFT WITHIN REACH OF PATIENT, FALL PRECAUTIONS IN PLACE.
[2016-09-05] MEDS ORDERED: CHOLECALCIFEROL (VITAMIN D3) 2,000 UNIT TABLET PO SCH (09:00)
[2016-09-05] MEDS ORDERED: PROPRANOLOL HCL 10 MG TABLET (INDERAL) PO SCH (09:00)
[2016-09-05] MEDS ORDERED: NEOMYCIN/POLYMYX B/HYDROCORTISONE 10 ML OTIC SOLUTION OT SCH (09:00)
[2016-09-05] MEDS ORDERED: cycloSPORINE 0.05%, 0.4 ML OPHTHALMIC EMULSION DROPERETTE OP SCH (09:00)
[2016-09-05] MEDS ORDERED: PREDNISONE 5 MG TABLET PO SCH (09:00)
--- NOTE | 2016-09-05 10:21 | NUR ---
RN ROUNDS PATIENT IS CURRENTLY RESTING IN BED WITH EYES CLOSED, TWO DAUGHTERS AT BEDSIDE, NO SIGNS OF DISTRESS NOTED, BREATHING IS EVEN AND UNLABORED, NO OTHER NEEDS AT THIS TIME, CALL ARREOLA LEFT NEXT TO PATIENT'S HAND, BED IN LOWEST POSITION, TWO SIDE RAILS UP, BED ALARM ON, FALL PRECAUTIONS IN PLACE, WILL CONTINUE TO MONITOR PATIENT.
[2016-09-05 12:00] VITALS: BP 130/74; PULSE 87; RESP 18; TEMP 98.1; O2SAT 91
--- NOTE | 2016-09-05 12:00 | NUR ---
Dr. Faby Kitchen came in to see patient and cleared patient for discharge.
--- NOTE | 2016-09-05 12:27 | NUR ---
RN ROUNDS PATIENT IS CURRENTLY RESTING IN BED, NO COMPLAINTS OF PAIN OR DISCOMFORT AT THIS TIME, NO OTHER NEEDS AT THIS TIME, WILL CONTINUE TO MONITOR PATIENT.
[2016-09-05] MEDS ORDERED: BENZONATATE 100 MG CAPSULE (TESSALON) PO PRN (12:45)
[2016-09-05 13:53] VITALS: BP 130/74; PULSE 87; RESP 16; TEMP 97.6; O2SAT 91
[2016-09-05] MEDS ORDERED: LORA-258 PO (14:07)
[2016-09-05] MEDS ORDERED: VANC250C11 PO (14:07)
[2016-09-05] MEDS ORDERED: LACT1CAP57 PO (14:09)
--- NOTE | 2016-09-05 14:45 | NUR ---
D/C Patient Patient given medication reconciliation form and D/C instructions. Exit Care provided. Patient verbalized understanding. MD discussed with patient the results and treatment provided. Ambulatory with steady gait for discharge to home. Patient in stable condition, ID band removed. IV catheter removed, intact and dressing applied, no active bleeding. Rx of Vancomycin, Ativan, Cutterella given. Patient educated on pain management. All belongings sent with patient.
--- NOTE | 2016-09-08 11:33 | NUR ---
Discharge Follow Up Phone Call: [facility]NA[facility] called and spoke with pt's dtr, Agnieszka ([phone]). Pt's dtr states that pt is doing well; pt's prescriptions have been filled; there are no questions regarding discharge or medication instructions; pt has already attended follow up appointments with Dr. Prieto and pt's PCP; pt checks her blood sugar as directed by PCP. Pt's dtr did not express any other needs or concerns and denied the need for additional follow up at this time. No further follow up phone calls required at this time.
== END 2016-09-05 14:45 | disposition home or self-care (01) | DRG 371 ==
LOC: SED 12:16 → SMU 14:12
PROVIDERS: ADMIT Internal Medicine Hospice and Palliative Medicine; ATTEND Internal Medicine Hospice and Palliative Medicine
DX: A04.7 Enterocolitis due to Clostridium difficile (principal); E43 Unspecified severe protein-calorie malnutrition; N13.30 Unspecified hydronephrosis; D86.9 Sarcoidosis, unspecified; I25.10 Atherosclerotic heart disease of native coronary artery without angina pectoris; E11.9 Type 2 diabetes mellitus without complications; I10 Essential (primary) hypertension; E78.5 Hyperlipidemia, unspecified; E03.9 Hypothyroidism, unspecified; E87.6 Hypokalemia; E83.42 Hypomagnesemia; E66.9 Obesity, unspecified; K57.30 Diverticulosis of large intestine without perforation or abscess without bleeding; R91.1 Solitary pulmonary nodule; Z96.653 Presence of artificial knee joint, bilateral; Z95.1 Presence of aortocoronary bypass graft; Z68.30 Body mass index [BMI] 30.0-30.9, adult; Z98.61 Coronary angioplasty status; Z88.8 Allergy status to other drugs, medicaments and biological substances; Z79.82 Long term (current) use of aspirin; Z79.899 Other long term (current) drug therapy; Z87.81 Personal history of (healed) traumatic fracture
CPT/HCPCS: 36415; 71010; 80048; 80053; 81000-TC; 82962; 83605; 83735-TC; 84132-TC; 85025; 85610-TC; 85730-TC; 87040-TC; 87081; 87086; 87230-TC; 93005; 94640; 94760; 96360; 97110-GP; 97116-GP; 97530-GP; 99291; J1940; J2060; J2405; J3475; J3480; J3490; J7030; J7040; J7042; J7050; J7512

== ENCOUNTER 2016-10-12 16:58 | Inpatient (IN) | payer OTHER ==
[~2016-10-12] VITALS: Ht 160 cm; Wt 78.9 kg
[~2016-10-12 16:58] MED LIST: AMLO5TAB4 PO; ASPI81TA2 PO; LACT1CAP57 PO; LIP40 PO; LORA-258 PO; VANC250C11 PO
[2016-10-12 17:18] VITALS: BP_SYST 103
[2016-10-12] MEDS ORDERED: ACETAMINOPHEN 500 MG TABLET PO ONE (17:45)
[2016-10-12] MEDS ORDERED: PIPERACILLIN/TAZO 3.38 GM in NS 50 ML IV ONE (17:45)
--- NOTE | 2016-10-12 17:47 | NUR ---
Placed in room 3 . Placed on cardroom plastic card grader, blood pressure machine and pulse oximeter. To gown for exam. Side rails up. Report given to Faizan FLORES.
--- NOTE | 2016-10-12 17:50 | NUR ---
Per pt's daughter, pt has had R lower flank pain for last 2-3 days, pain scale 7/10. Pt's daughter states that pt has had episodes of dizziness and weakness for "a few days", pt states having 4 episodes of vomiting for 1 hour up to current ER visit. Pt denies diarrhea. Pt's daughter states pt has been unable to digest food effectively and vomits. Pt PERRLA, AAOx4, able to communicate effectively with family members at bedside. Pt denies any other complaints.
--- NOTE | 2016-10-12 17:51 | NUR ---
ER Dr. Chavez at bedside examining patient.
[2016-10-12] MEDS ORDERED: ONDANSETRON HCL 4 MG/2 ML VIAL IVP ONE (18:00)
[2016-10-12] MEDS ORDERED: PIPERACILLIN/TAZOBACTAM 3.375 GM/VIAL (ZOSYN) IV ONE (18:07)
--- NOTE | 2016-10-12 18:15 | NUR ---
Pt tolerated rad dept CT scan.
[2016-10-12 18:59] LABS: BASOPHILS # (AUTO) 0.1 K/uL (0.0-0.2); BASOPHILS % (AUTO) 0.7 % (0.0-2.0); EOSINOPHILS # (AUTO) 0.6 K/uL (0.0-0.4); EOSINOPHILS % (AUTO) 4.3 % (0.0-4.0); HEMATOCRIT 34.1 % (36-48); HEMOGLOBIN 11.5 g/dL (12.0-16.0); LYMPHOCYTES # (AUTO) 1.8 K/uL (1.0-5.5); LYMPHOCYTES % (AUTO) 13.5 % (20.5-51.5); MEAN CORPUSCULAR HEMOGLOBIN 29 pg (27-31); MEAN CORPUSCULAR HGB CONC 34 % (32-36); MEAN CORPUSCULAR VOLUME 88 fL (79.0-98.0); MONOCYTES # (AUTO) 1.4 K/uL (0.0-1.0); MONOCYTES % (AUTO) 10.6 % (1.7-9.3); NEUTROPHILS # (AUTO) 9.7 K/uL (1.8-7.7); NEUTROPHILS % (AUTO) 70.9 % (40.0-70.0); PLATELET COUNT (AUTO) 237 K/uL (130-430); RED CELL DISTRIBUTION WIDTH 14.2 % (9.0-15.0); WHITE BLOOD COUNT (AUTO) 13.6 K/uL (4.8-10.8)
[2016-10-12 19:20] LABS: BILIRUBIN,URINE NEGATIVE (NEGATIVE); CLARITY/URINE SL CLOUDY (CLEAR); COLOR,URINE YELLOW (YELLOW); GLUCOSE,URINE NEGATIVE (NEGATIVE); KETONES,URINE NEGATIVE (NEGATIVE); LEUKOCYTE ESTERASE ,URINE TRACE (NEGATIVE); NITRITE, URINE NEGATIVE (NEGATIVE); PH,URINE 5.5 (5.0-8.0); PROTEIN URINE NEGATIVE (NEGATIVE); UROBILINOGEN,URINE 0.2 (0.2-1.0)
--- NOTE | 2016-10-12 19:27 | NUR ---
Pt stable, no signs of distress noted
[2016-10-12] MEDS ORDERED: IBUP-2101 PO (19:29)
[2016-10-12] MEDS ORDERED: PROP10TA10 PO (19:29)
[2016-10-12] MEDS ORDERED: ASPI325T2 PO (19:29)
[2016-10-12] MEDS ORDERED: RANI150T8 PO (19:29)
[2016-10-12] MEDS ORDERED: PRED5TAB PO (19:29)
[2016-10-12] MEDS ORDERED: FLUT1DIS3 INH (19:29)
[2016-10-12] MEDS ORDERED: ROSU20TA PO (19:29)
[2016-10-12] MEDS ORDERED: LOSA50TA20 PO (19:29)
[2016-10-12] MEDS ORDERED: LEVO50TA77 PO (19:29)
[2016-10-12] MEDS ORDERED: CLOP75TA2 PO (19:29)
[2016-10-12] MEDS ORDERED: VITD2000 PO (19:29)
[2016-10-12] MEDS ORDERED: OM-31CAP8 PO (19:29)
[2016-10-12] MEDS ORDERED: MONT10TA25 PO (19:29)
[2016-10-12 19:30] LABS: ANION GAP 8 (5-15); CALCIUM 8.9 mg/dL (8.4-11.0); CHLORIDE 100 mmol/L (98-107); GLUCOSE 157 mg/dL (70-99); POTASSIUM 4.2 mmol/L (3.5-5.1); SODIUM SERUM 133 mmol/L (136-145)
[2016-10-12 19:31] LABS: ALANINE AMINOTRANSFERASE 19 U/L (12-78); ALBUMIN 3.2 g/dL (3.4-4.8); ASPARTATE AMINOTRANSFERASE 20 U/L (10-37); CREATININE 1.76 mg/dL (0.55-1.30); LIPASE 109 U/L (73-393); TOTAL BILIRUBIN 0.4 mg/dL (0.0-1.0); TOTAL PROTEIN, SERUM 6.9 g/dL (6.4-8.3); UREA NITROGEN, BLOOD 24 mg/dL (8-21)
--- NOTE | 2016-10-12 19:35 | NUR ---
Patient will be admitted to care of orders received from Dr. Monroe . Admitted to tele unit. Will go to room 110B Belongings list completed. Summary report printed. Report will be given at bedside.
--- NOTE | 2016-10-12 19:39 | NUR ---
Admission Note Received patient from ER with diagnosis of SEPSIS, UTI. Initial Plan of Care discussed-patient verbalized understanding. Family at bedside. Oriented to room, call light, pain management and safety.
--- NOTE | 2016-10-12 19:41 | NUR ---
ADMISSION NOTE Received patient from ER via sasha, received report from Rosanne FLORES. Patient admitted with diagnosis of sepsis and UTI. Patient oriented to hospital routine, call light, toileting and safety-patient verbalized understanding.
[2016-10-12 19:43] LABS: INR 1.2 (0.8-1.2); PROTHROMBIN TIME 12.5 SECS (9.5-12.5)
--- NOTE | 2016-10-12 19:49 | NUR ---
Patient will be admitted to care of Dr. Guzman. Admitted to med surg unit. Will go to room 110 B. Belongings list completed. Summary report printed. Report given to SANDRA Izaguirre.
[2016-10-12 19:54] VITALS: BP_SYST 87
[2016-10-12 19:55] LABS: BLOOD, URINE TRACE (NEGATIVE)
[2016-10-12 20:01] VITALS: BP_SYST 82
[2016-10-12 20:03] LABS: BACTERIA,URINE FEW /HPF (None Seen); RBC,URINE 0-3 /HPF (0-3)
--- NOTE | 2016-10-12 20:06 | NUR ---
MD CEJA CALLED [facility] AT SPOKE WITH DR THIAGO,SURYA WEAVER DOUGH MIXER HELPER.
[2016-10-12 20:07] LABS: FINE GRANULAR CASTS,URINE 0-10 /LPF (None Seen); MUCUS,URINE 1+ /LPF (None Seen); URIC ACID CRYSTALS,URINE 30-50 /HPF (None Seen)
[2016-10-12] MEDS ORDERED: NACL 0.9% 1,000 ML IV ONE ×2 (20:15→20:45)
--- NOTE | 2016-10-12 20:29 | NUR ---
MD CEJA CALLED [facility] AT SPOKE WITH DR.REZVANI MALDONADO FARHAD FLAME ANNEALING MACHINE OPERATOR.
[2016-10-12] MEDS ORDERED: NS 250 ML IV ONE (20:45)
--- NOTE | 2016-10-12 21:30 | NUR ---
Initial note A/O x 3, no SOB, no chest pain, denied pain at this time. Denied flank pain, denied N/V. Skin warm to touch, IV at L hand #22, patent. Clear lung sounds and active bowel sounds. +2 radial and pedal pulses. No edema. BP check now is 101/59, 2nd NS bolus given now. Patient denied dizziness or headache. Oriented room to patient and family. Call light within reach, bed at lowest position, bed alarm on, will continue to monitor patient.
--- NOTE | 2016-10-12 22:00 | NUR ---
Assisted patient to bathroom for urination.
[2016-10-12] MEDS: NACL 0.9% 1,000 ML IV SCH (22:50)
--- NOTE | 2016-10-12 23:00 | NUR ---
MD BRENNA RODRIGUEZ CALLED AT SPOKE WITH DR.REZVANI BARRAZA FARHAD WELDING SETTER.
[2016-10-13] VITALS (8 sets, daily range): BP systolic 102–136
[2016-10-13] MEDS ORDERED: IBUPROFEN 200 MG TABLET PO SCH
--- NOTE | 2016-10-13 | NUR ---
MD koko Monroe is here and had new order for C-diff and med reconcile. Order carried out. Addendum: 10/13/16 at 0038 by Austyn Felton RN Confirmed with family/daughter (Olamide) that patient is take Aspirin 81 mg PO daily for blood thinner, 325 mg PO daily for stent, and Prednisone 5 mg PO daily. And patient is allergic to methylprednisolone. is aware of patient is taking both Aspirin 81mg and 325 mg PO daily for stent. also aware of that patient is allergic to methylprednisolone, but patient is taking prednisone at home.
--- NOTE | 2016-10-13 00:13 | NUR ---
Rounds Resting/sleeping in bed. No SOB, no chest pain, denied pain at this time. Denied flank pain, denied N/V. Continued IVF. Patient denied dizziness or headache. Family at bedside. Call light within reach, bed at lowest position, bed alarm on, will continue to monitor patient.
[2016-10-13] MEDS ORDERED: PREDNISONE 20 MG TABLET PO ONE (00:15)
--- NOTE | 2016-10-13 00:32 | NUR ---
Assisted patient to bathroom for urination Family/daughter (Olamide) at bedside. Both patient and Olamide aware of stool collection for C-Diff x 3.
--- NOTE | 2016-10-13 02:36 | NUR ---
Rounds Patient sleeping/resting in bed, arousable. Skin warm to touch. C/o cold and shaking. Body temp 98.3-98.4 F, gave 1 warm sheet and 1 warm blanket. No SOB, no chest pain, denied pain. Family at bedside. Call light within reach, bed at lowest position, will continue to monitor patient.
--- NOTE | 2016-10-13 02:44 | NUR ---
Reassessed patient for shaking Patient is sleeping, no shaking. Family at bedside.
--- NOTE | 2016-10-13 03:56 | NUR ---
Rounds Patient sleeping/resting in bed, arousable. No shaking. No SOB, no chest pain, denied pain. Family at bedside. Call light within reach, bed at lowest position, will continue to monitor patient.
--- NOTE | 2016-10-13 05:49 | NUR ---
Assisted patient to bathroom for urination Clear yellow urine noted, patient denied dysuria. No dizziness, no pain, no SOB, no chest pain. Was covered by several sheets and blankets, sweat some. Pillow case and gown changed.
[2016-10-13] MEDS ORDERED: PIPERACILLIN/TAZOBACTAM 4.5 GM/VIAL (ZOSYN) IV ONE (05:58)
[2016-10-13] MEDS: PIPERACILLIN/TAZO 4.5 GM in NS 100 ML IV SCH ×3 (06:03→22:11)
[2016-10-13] MEDS: LEVOTHYROXINE SODIUM 0.05 MG TABLET PO SCH (06:03)
--- NOTE | 2016-10-13 06:05 | NUR ---
Rounds Awake in bed. No SOB, no chest pain, denied pain, denied N/V. Infused Zosyn and gave Synthroid. Family at bedside. Call light within reach, bed at lowest position, will continue to monitor patient.
[2016-10-13 06:42] LABS: BASOPHILS % (AUTO) 0.2 % (0.0-2.0); EOSINOPHILS # (AUTO) 0.1 K/uL (0.0-0.4); EOSINOPHILS % (AUTO) 1.2 % (0.0-4.0); HEMOGLOBIN 10.5 g/dL (12.0-16.0); LYMPHOCYTES # (AUTO) 1.1 K/uL (1.0-5.5); LYMPHOCYTES % (AUTO) 10.1 % (20.5-51.5); MEAN CORPUSCULAR HEMOGLOBIN 29 pg (27-31); MEAN CORPUSCULAR HGB CONC 33 % (32-36); MEAN CORPUSCULAR VOLUME 89 fL (79.0-98.0); MONOCYTES # (AUTO) 0.1 K/uL (0.0-1.0); NEUTROPHILS # (AUTO) 9.7 K/uL (1.8-7.7); NEUTROPHILS % (AUTO) 87.5 % (40.0-70.0); PLATELET COUNT (AUTO) 226 K/uL (130-430); RED BLOOD CELL COUNT(AUTO) 3.61 MIL/uL (4.2-6.2); RED CELL DISTRIBUTION WIDTH 14.3 % (9.0-15.0)
[2016-10-13 07:01] LABS: ALANINE AMINOTRANSFERASE 18 U/L (12-78); ALBUMIN 2.7 g/dL (3.4-4.8); ANION GAP 9 (5-15); ASPARTATE AMINOTRANSFERASE 21 U/L (10-37); CALCIUM 8.2 mg/dL (8.4-11.0); CHLORIDE 106 mmol/L (98-107); CREATININE 1.43 mg/dL (0.55-1.30); GLUCOSE 206 mg/dL (70-99); POTASSIUM 4.3 mmol/L (3.5-5.1); SODIUM SERUM 136 mmol/L (136-145); TOTAL BILIRUBIN 0.4 mg/dL (0.0-1.0); UREA NITROGEN, BLOOD 18 mg/dL (8-21)
--- NOTE | 2016-10-13 07:46 | NUR ---
Closing note Sleeping in bed. No SOB, no chest pain, no grimacing. Family at bedside. Call light within reach, bed at lowest position, report given to incoming nurser regarding ASA 81 mg and 325 mg as well patient is taking Prednisone while she's allergic to methylprednisolone. Also informed about C-Diff/stool collection needed.
--- NOTE | 2016-10-13 08:28 | NUR ---
am notes- in bed awake, alert and oriented. family at bedside. ambulate with walker with supervision. denies any pain or discomfort at this time. ivf infusing well. no distress noted. will monitor.
[2016-10-13] MEDS ORDERED: amLODIPine BESYLATE 5 MG TABLET PO SCH (09:00)
[2016-10-13] MEDS ORDERED: LOSARTAN POTASSIUM 50 MG TABLET (COZAAR) PO SCH (09:00)
[2016-10-13] MEDS ORDERED: ASPIRIN 325 MG TABLET PO SCH (09:00)
[2016-10-13] MEDS ORDERED: ROSUVASTATIN CALCIUM 5 MG/TAB (CRESTOR) PO SCH (09:00)
[2016-10-13] MEDS ORDERED: FLUTICASONE 250 mCg/SALMETEROL 50 mCg DISKUS W.DEV INH SCH (09:00)
[2016-10-13] MEDS ORDERED: PROPRANOLOL HCL 10 MG TABLET (INDERAL) PO SCH (09:00)
--- NOTE | 2016-10-13 09:30 | NUR ---
Nutrition Update Jass Scale 18 noted. Pt admitted for UTI, sepsis. Diet: regular BMI: 31 kg/m2 RD to follow per nutrition care standards.
[2016-10-13] MEDS: LACTOBACILLUS RHAMNOSUS GG 1 CAP CAPSULE PO SCH ×2 (09:38→22:11)
[2016-10-13] MEDS: ATORVASTATIN 20 MG TABLET PO SCH (09:38)
[2016-10-13] MEDS: PREDNISONE 5 MG TABLET PO SCH (09:39)
[2016-10-13] MEDS: CLOPIDOGREL BISULFATE 75 MG TABLET PO SCH (09:39)
[2016-10-13] MEDS: CHOLECALCIFEROL (VITAMIN D3) 2,000 UNIT TABLET PO SCH (09:39)
--- NOTE | 2016-10-13 10:30 | NUR ---
notes- in bed awake, family at bedside. denies any pain, n/v and diarrhea. no distress noted.
[2016-10-13] MEDS: NACL 0.9% 1,000 ML IV SCH (11:28)
--- NOTE | 2016-10-13 12:30 | NUR ---
notes- assisted to the bathroom with walker and voided. denies any pain or discomfort at this time. family always at bedside. no distress noted.
[2016-10-13] MEDS: ASPIRIN 81 MG TAB.CHEW PO SCH (13:25)
[2016-10-13] MEDS: FLUTICASONE/VILANTEROL 1 EACH BLST.W.DEV INH SCH (13:26)
--- NOTE | 2016-10-13 15:37 | NUR ---
notes- resting in bed. ivf infusing well. no distress noted.
--- NOTE | 2016-10-13 17:12 | NUR ---
notes- talking on the phone. denies any pain or discomfort. family at bedside.
[2016-10-13] MEDS: MONTELUKAST 10 MG TABLET PO SCH (17:26)
--- NOTE | 2016-10-13 18:37 | NUR ---
notes- assisted to the bathroom and voided. denies any pain or discomfort. family at bedside. all needs meet. will endorse
--- NOTE | 2016-10-13 19:20 | NUR ---
Initial Round Received patient in bed with family at bedside. Pt is awake, alert oriented x3. V/S are WNL. No s/s of any pain or distress noted. IV noted to R wrist g 22, no infiltrate and with good blood return. All extremities are strong BRP. Discussed plan of care with pt and verbalized understanding. Bed in low position with call light within reach, will cont to monitor.
--- NOTE | 2016-10-13 19:20 | NUR ---
Rounds Patient is awake with family at bedside. No s/s of any distress noted. Call light within reach, will cont to monitor.
--- NOTE | 2016-10-13 23:20 | NUR ---
Assisted to B/R Assisted to b/r and safely back to bed. No s/s of any distress noted. Bed in low position with side rails up. Call light within reach, will cont to monitor.
[2016-10-14 04:04] VITALS: BP_SYST 136
[2016-10-14] MEDS: LEVOTHYROXINE SODIUM 0.05 MG TABLET PO SCH (06:01)
[2016-10-14] MEDS: PIPERACILLIN/TAZO 4.5 GM in NS 100 ML IV SCH ×3 (06:02→22:27)
[2016-10-14] MEDS: NACL 0.9% 1,000 ML IV SCH ×2 (06:03→14:00)
--- NOTE | 2016-10-14 06:22 | NUR ---
Assisted to B/R Assisted to b/r and safely back to bed, daughter at bedside. No s/s of any distress noted. Bed in low position with side rails up. Call light within reach, will cont to monitor.
--- NOTE | 2016-10-14 06:47 | NUR ---
Final Rounds Patient is resting at this time with daughter at bedside. No s/s of pain or any distress noted. V/S are wnl. All needs met and anticipated by noc nurses. Bed in low position with side rails up x2. Call light within reach, will endorse.
--- NOTE | 2016-10-14 08:00 | NUR ---
INITIAL NOTE PT RESTING, EASY TO AROUSE, PERSIAN SPEAKING ONLY, FAMILY AT BESIDE, CAN AID IN TRANSLATION, PT OTHER CARRIZALES ALERT AND ORIENTED, NO S/S OF SOB OR PAIN, PT C/O OF RASH TO BILATERAL BACK, WILL NOTIFY MD AND FOLLOW UP, IV TO LEFT WRIST INTACT AND INFUSING FLUIDS AT ORDERED RATE, PLAN OF CARE DISCUSSES, PATIENT AND FAMILY VERBALIZED UNDERSTANDING, SAFETY MEASURES IN PLACE, BED IN LOW POSITION AND LOCKED, CALL LIGHT WITHIN REACH, WILL FOLLOW UP
[2016-10-14] MEDS: ACETAMINOPHEN 500 MG TABLET PO PRN ×2 (08:06→23:48)
[2016-10-14 08:10] VITALS: BP_SYST 131
[2016-10-14] MEDS: FLUTICASONE/VILANTEROL 1 EACH BLST.W.DEV INH SCH (08:12)
[2016-10-14] MEDS: ASPIRIN 81 MG TAB.CHEW PO SCH (08:12)
[2016-10-14] MEDS: PREDNISONE 5 MG TABLET PO SCH (08:12)
[2016-10-14] MEDS: CLOPIDOGREL BISULFATE 75 MG TABLET PO SCH (08:12)
[2016-10-14] MEDS: CHOLECALCIFEROL (VITAMIN D3) 2,000 UNIT TABLET PO SCH (08:13)
[2016-10-14] MEDS: LACTOBACILLUS RHAMNOSUS GG 1 CAP CAPSULE PO SCH ×2 (08:13→21:48)
[2016-10-14] MEDS: ATORVASTATIN 20 MG TABLET PO SCH (08:13)
--- NOTE | 2016-10-14 09:30 | NUR ---
DR ADAME MAKING ROUNDS, PER MD IF PATIENT IS NOT HAVING DIARRHEA, MAY CANCEL ORDERS FOR CDIFF, PT MADE AWARE, WILL FOLLOW UP
[2016-10-14] MEDS ORDERED: DIPHENHYDRAMINE INJ 50 MG/ML VIAL IVP PRN (09:45)
--- NOTE | 2016-10-14 10:00 | NUR ---
ROUNDS PT LAYING IN BED RESTING, NO S/S OF DISTRESS OR PAIN, VS WITHIN NORMAL RANGE, FAMILY AT BEDSIDE, ALL NEEDS ATTENDED TO, SAFETY MEASURES IN PLACE, WILL FOLLOW UP
--- NOTE | 2016-10-14 12:40 | NUR ---
DR ESPINAL MAKING ROUNDS MADE AWARE OF RASH, PER MD RASH IS DUE TO ZOSYN, CONTINUE TO ADMINISTER WITH ZOSYN AND MONITOR RASH AND OTHER SYMPTOMS , MD ORDERED TO CHANGE BENADRYL ORDER TO PO NOT IV .
[2016-10-14 12:45] VITALS: BP_SYST 130
--- NOTE | 2016-10-14 13:00 | NUR ---
IV RE-INSERTION: Complaining of pain to IV site. Restarted on LEFT WRIST, 22G. Successful after 1 attempts. Resumed current IVF of NORMAL SALINE and regulated @ 75 per hour. Will observe for any signs of infiltration.
--- NOTE | 2016-10-14 15:00 | NUR ---
ROUNDS PT SITTING UP IN BED, SON AT BEDSIDE, NO S/S OF DISTRESS OR PAIN, PER PATIENT, RASH IS THE SAME IF NOT A LITTLE BETTER, WILL CONTINUE TO MONITOR, SAFETY MEASURES IN PLACE, CALL LIGHT WITHIN REACH, WILL FOLLOW UP
[2016-10-14 16:29] VITALS: BP_SYST 115
--- NOTE | 2016-10-14 17:45 | NUR ---
rounds pt assisted to restroom, weakness noted, no s/s of distress or c/o pain, alert and oriented, pt returned to bed, positioned for dinner, safety measures in place, call zohra looney, family at bedside, will continue to monitor
[2016-10-14] MEDS: DIPHENHYDRAMINE HCL 50 MG CAPSULE PO PRN ×2 (17:48→23:48)
[2016-10-14] MEDS: MONTELUKAST 10 MG TABLET PO SCH (17:48)
--- NOTE | 2016-10-14 18:26 | NUR ---
CLOSING NOTE PT SITTING IN BED, FAMILY MEMBERS AT BEDSIDE, NO S/S OF PAIN OR DISTRESS, IV FLUIDS INFUSING TO LEFT HAND, NO S/S OF INFILTRATION NOTED, ALL NEEDS ATTENDED TO THROUGHOUT SHIFT, SAFETY MEASURES MAINTAINED, BED IN LOW POSITION AND LOCKED, WILL GIVE REPORT TO FOLLOWING SHIFT.
[2016-10-14 19:30] VITALS: BP_SYST 113
--- NOTE | 2016-10-14 19:30 | NUR ---
INITIAL NOTES; -Pt is a/ox4, resting in bed. Frisian speaking. Daughter is at bedside. Pt denies any pain,sob,or any acute distress. Saline negin of left hand #22,patent, no s/s any infiltration after flushed w/ NS,drsg cdi. IVF NS @ 75ml/hr. All safety measures in place. Discussed poc,all safety measures with pt and family, pt verbalized understanding. Also, instructed pt not to get out bed by self, to use call light for assistance, pt and daughter verbalized understanding. Call light w/in reach. Continue to monitor pt.
--- NOTE | 2016-10-14 22:25 | NUR ---
IV PLACEMENT: # 22 gauge angiocath placed to rt hand by Johnnie nurse. Use of asceptic technique. Opsite placed over site. Blood return noted. Flushed with 10 cc of normal saline. No evidence of infiltration noted. Patient tolerated well.
--- NOTE | 2016-10-14 22:27 | NUR ---
ROUNDS; -Pt is resting in bed. Daughter is at bedside. Pt denies any pain,sob,or any acute distress. hand #22,patent, no s/s any infiltration after flushed w/ NS,cecy cdi. IVF NS @ 75ml/hr. All safety measures in place. Call light w/in reach. Continue to monitor pt.
[2016-10-14] MEDS: LORazepam 1 MG TABLET PO PRN (23:48)
--- NOTE | 2016-10-14 23:49 | NUR ---
ROUNDS;ANXIOUS AND PAIN MEDICATION ADMINISTERED -Pt is resting in bed. Daughter is at bedside. Pt is c/o generalized pain and anxious, gave Lorazepam 0.5mg po and Tylenol 500mg po, hand #22,patent, no s/s any infiltration after flushed w/ NS,drsg cdi. IVF NS @ 75ml/hr. All safety measures in place. Call light w/in reach. Continue to monitor pt.
[2016-10-15 00:40] VITALS: BP_SYST 159
--- NOTE | 2016-10-15 01:40 | NUR ---
ROUNDS; -Pt is resting in bed. Daughter is at bedside. IV site of rt hand patent, no s/s any infiltration noted. IVF NS @ 75ml/hr. All safety measures in place. Call light w/in reach. Continue to monitor pt
--- NOTE | 2016-10-15 02:15 | NUR ---
BATHROOM WITH ASSISTANCE -Pt returned from bathroom with a walker, assisting by daughter returned to bed safely. Fall precaution in place. Call light w/in reach. Continue to monitor pt.
--- NOTE | 2016-10-15 03:50 | NUR ---
ROUNDS; -Pt is resting in bed. Daughter is at bedside. No s/s any infiltration IV noted. IVF NS @ 75ml/hr. All safety measures in place. Call light w/in reach. Continue to monitor pt
[2016-10-15 05:14] VITALS: BP_SYST 143
[2016-10-15] MEDS: DIPHENHYDRAMINE HCL 50 MG CAPSULE PO PRN ×2 (06:09→14:04)
[2016-10-15] MEDS: LEVOTHYROXINE SODIUM 0.05 MG TABLET PO SCH (06:09)
[2016-10-15] MEDS: PIPERACILLIN/TAZO 4.5 GM in NS 100 ML IV SCH ×2 (06:09→14:06)
[2016-10-15] MEDS: NACL 0.9% 1,000 ML IV SCH (06:10)
--- NOTE | 2016-10-15 06:49 | NUR ---
CLOSING NOTES; -Pt is resting in bed. No s/s any pain or acute distress noted. Daughter is at bedside. Saline negin of left hand patent, no s/s any infiltration of IV site noted. IVF NS @ 75ml/hr. All safety measures in place. Call light w/in reach. Will endorse to oncoming nurse to continue care.
[2016-10-15 06:54] LABS: BASOPHILS % (AUTO) 0.2 % (0.0-2.0); EOSINOPHILS # (AUTO) 0.4 K/uL (0.0-0.4); EOSINOPHILS % (AUTO) 4.1 % (0.0-4.0); HEMATOCRIT 30.1 % (36-48); HEMOGLOBIN 9.8 g/dL (12.0-16.0); LYMPHOCYTES # (AUTO) 2.3 K/uL (1.0-5.5); LYMPHOCYTES % (AUTO) 22.4 % (20.5-51.5); MEAN CORPUSCULAR HEMOGLOBIN 29 pg (27-31); MEAN CORPUSCULAR HGB CONC 33 % (32-36); MEAN CORPUSCULAR VOLUME 89 fL (79.0-98.0); MONOCYTES # (AUTO) 1.2 K/uL (0.0-1.0); MONOCYTES % (AUTO) 11.1 % (1.7-9.3); NEUTROPHILS # (AUTO) 6.5 K/uL (1.8-7.7); NEUTROPHILS % (AUTO) 62.2 % (40.0-70.0); PLATELET COUNT (AUTO) 213 K/uL (130-430); RED BLOOD CELL COUNT(AUTO) 3.39 MIL/uL (4.2-6.2); RED CELL DISTRIBUTION WIDTH 14.1 % (9.0-15.0); WHITE BLOOD COUNT (AUTO) 10.4 K/uL (4.8-10.8)
[2016-10-15 08:00] VITALS: BP_SYST 181
--- NOTE | 2016-10-15 08:00 | NUR ---
NOTE PT SITTING ON SIDE OF BED EATING HER BREAKFAST AT THIS TIME. PT'S IVF'S INFUSING WELL THROUGH RIGHT HAND IV SITE. NO SOB/RESP DISTRESS OR PAIN/DISCOMFORT NOTED. CALL LIGHT WITHIN REACH.
[2016-10-15] MEDS: FLUTICASONE/VILANTEROL 1 EACH BLST.W.DEV INH SCH (09:01)
[2016-10-15] MEDS: LACTOBACILLUS RHAMNOSUS GG 1 CAP CAPSULE PO SCH (09:02)
[2016-10-15] MEDS: CHOLECALCIFEROL (VITAMIN D3) 2,000 UNIT TABLET PO SCH (09:02)
[2016-10-15] MEDS: CLOPIDOGREL BISULFATE 75 MG TABLET PO SCH (09:02)
[2016-10-15] MEDS: PREDNISONE 5 MG TABLET PO SCH (09:02)
[2016-10-15] MEDS: ATORVASTATIN 20 MG TABLET PO SCH (09:02)
[2016-10-15] MEDS: ASPIRIN 81 MG TAB.CHEW PO SCH (09:02)
[2016-10-15] MEDS: LORazepam 1 MG TABLET PO PRN (09:03)
[2016-10-15] MEDS ORDERED: cloNIDine HCL 0.1 MG TABLET PO ONE (10:30)
--- NOTE | 2016-10-15 10:30 | NUR ---
NOTE PT WAS SEEN AND ASSESSED BY DR LOERA. QUESTIONS/CONCERNS WERE ANSWERED AT THIS TIME. DR LOERA NOTED PT COULD GO HOME IF OKAY BY DR ESPINAL. DR ESPINAL TO BE PAGED AT THIS TIME. PT'S DAUGHTER AT BEDSIDE SINCE START OF SHIFT. CALL LIGHT WITHIN REACH.
--- NOTE | 2016-10-15 10:59 | NUR ---
MARK MYERS, DR CASAS CALLED RE: DISCHARGED MEDICATION ORDER. LEFT A VOICE MESSAGE.
[2016-10-15 11:29] VITALS: BP_SYST 157
--- NOTE | 2016-10-15 13:00 | NUR ---
NOTE DR ESPINAL WAS PAGED AGAIN - NO CALL BACK REC'D. PT'S FAMILY REQUESTED THE CALL TO DR ESPINAL AT THIS TIME. PT STABLE AND RESTING IN BED. PT WAS ASSISTED WITH SHOWER AT THIS TIME BY DAIRY QUALITY ASSURANCE OFFICER. PT ABLE TO AMBULATE IN ROOM AND TO BED WITH FWW AND STANDBY ASSIST. NO NEEDS NOTED. CALL LIGHT WITHIN REACH.
[2016-10-15 15:32] VITALS: BP_SYST 129
--- NOTE | 2016-10-15 16:00 | NUR ---
NOTE DR ESPINAL WAS CALLED AGAIN PER PT'S SON'S REQUEST - NICKI. WAITING FOR CALL BACK AT THIS TIME. PT RESTING IN BED. CALL LIGHT WITHIN REACH.
--- NOTE | 2016-10-15 17:17 | NUR ---
ATTENDING MD SUPERVISOR CALIBRATION DR LOERA WAS CALLED, RE: REQUEST OF MARK VARGHESE MD TO GIVE DISCHARGED PRESCRIPTION FOR THE PT IS GOING HOME. SPOKE TO JUAN C
[2016-10-15] MEDS: MONTELUKAST 10 MG TABLET PO SCH (17:21)
--- NOTE | 2016-10-15 18:25 | NUR ---
NOTE PT'S IV WAS DC'D AND SITE BENIGN. NO SWELLING/REDNESS/BLEEDING/DRAINAGE NOTED AT SITE. NO TENDERNESS NOTED. PT DENIES ANY SOB/RESP DISTRESS OR PAIN/DISCOMFORT AT THIS TIME. PT DRESSED IN STREET CLOTHES. ALL BELONGINGS WERE PACKED BY PT'S SON AND FAMILY. CHECKED SIDE TABLE AND DRAWERS FOR BELONGINGS. PT OFF THE FLOOR VIA WHEELCHAIR WITH ALL HER BELONGINGS AND DISCHARGE PAPERWORK. PT'S DISCHARGE INSTRUCTIONS WERE DISCUSSED WITH PT AND HER SON. QUESTIONS/CONCERNS WERE ANSWERED AT THIS TIME.
--- NOTE | 2016-10-15 18:26 | NUR ---
prescription for antibiotic patient needs prescription of levaquin 250mg P.O daily x 7 days to start tomorrow, patient's pharmacy is close on weekend. Dr Ceja made aware and will write prescription jose. am once she arrive in hospital. Son agree to vegetable picker the prescription tomorrow once written by Dr Ceja. Will endorse to incoming maintenance supervisor 2nd shift charge nurse.
[2016-10-16] MEDS ORDERED: amLODIPine BESYLATE 5 MG TABLET PO SCH (09:00)
--- NOTE | 2016-10-21 10:18 | NUR ---
Discharge Follow Up Phone Call BINGO CASHIER phoned patient, , on 10/19/16 and left a voicemail message with offer of assistance and Social Service contact information. Patient was readmitted 10/19/16.
== END 2016-10-15 18:15 | disposition home or self-care (01) | DRG 871 ==
LOC: SED 16:58 → SMU 19:19 → STU 20:51 → SMU 10-13 11:51
PROVIDERS: ADMIT Internal Medicine Hospice and Palliative Medicine; ATTEND Internal Medicine Hospice and Palliative Medicine
DX: A41.9 Sepsis, unspecified organism (principal); N17.0 Acute kidney failure with tubular necrosis; N12 Tubulo-interstitial nephritis, not specified as acute or chronic; K57.92 Diverticulitis of intestine, part unspecified, without perforation or abscess without bleeding; N39.0 Urinary tract infection, site not specified; D86.9 Sarcoidosis, unspecified; E03.9 Hypothyroidism, unspecified; E78.5 Hyperlipidemia, unspecified; I10 Essential (primary) hypertension; I25.10 Atherosclerotic heart disease of native coronary artery without angina pectoris; Z95.1 Presence of aortocoronary bypass graft; Z88.8 Allergy status to other drugs, medicaments and biological substances; Z79.82 Long term (current) use of aspirin; Z79.899 Other long term (current) drug therapy; Z87.81 Personal history of (healed) traumatic fracture
CPT/HCPCS: 36415; 71010; 80053; 81000-TC; 83605; 83690-TC; 85025; 85610-TC; 87040-TC; 87081; 87086; 93005; 96365; 96375; 99285; J1200; J2405; J2543; J7030; J7042; J7050; J7512; Q0163

== ENCOUNTER 2016-10-19 15:37 | Inpatient (IN) | payer OTHER ==
[~2016-10-19] VITALS: Ht 160 cm; Wt 75.3 kg
[~2016-10-19 15:37] MED LIST changes: +ASPI325T2 PO; +CLOP75TA2 PO; +FLUT1DIS3 INH; +IBUP-2101 PO; +LEVO50TA77 PO; +LOSA50TA20 PO; +MONT10TA25 PO; +OM-31CAP8 PO; +PRED5TAB PO; +PROP10TA10 PO; +RANI150T8 PO; +ROSU20TA PO; -VANC250C11 PO; +VITD2000 PO
[2016-10-19 15:55] VITALS: BP_SYST 166
[2016-10-19] MEDS ORDERED: ONDANSETRON HCL 4 MG/2 ML VIAL IVP ONE (16:45)
[2016-10-19 17:19] LABS: HEMATOCRIT 34.6 % (36-48); HEMOGLOBIN 11.9 g/dL (12.0-16.0); MEAN CORPUSCULAR HEMOGLOBIN 30 pg (27-31); MEAN CORPUSCULAR HGB CONC 34 % (32-36); MEAN CORPUSCULAR VOLUME 88 fL (79.0-98.0); PLATELET COUNT (AUTO) 347 K/uL (130-430); RED BLOOD CELL COUNT(AUTO) 3.95 MIL/uL (4.2-6.2); RED CELL DISTRIBUTION WIDTH 13.7 % (9.0-15.0); WHITE BLOOD COUNT (AUTO) 14.3 K/uL (4.8-10.8)
[2016-10-19 17:27] LABS: INR 1.1 (0.8-1.2); PROTHROMBIN TIME 11.5 SECS (9.5-12.5)
[2016-10-19 17:37] LABS: ANION GAP 6 (5-15); CALCIUM 9.3 mg/dL (8.4-11.0); CHLORIDE 100 mmol/L (98-107); CREATININE 1.13 mg/dL (0.55-1.30); GLUCOSE 185 mg/dL (70-99); POTASSIUM 3.6 mmol/L (3.5-5.1); SODIUM SERUM 134 mmol/L (136-145); UREA NITROGEN, BLOOD 21 mg/dL (8-21)
[2016-10-19 17:45] LABS: ATYPICAL LYMPHOCYTES % 2 % (0-0); BAND % (MANUAL) 20 % (0-6); BASOPHILS % (MANUAL) 0 % (0-2); EOSINOPHILS % (MANUAL) 1 % (0-7); LYMPHOCYTES % (MANUAL) 6 % (20-46); MONOCYTES % (MANUAL) 2 % (0-11)
[2016-10-19 17:50] LABS: ALANINE AMINOTRANSFERASE 26 U/L (12-78); ALBUMIN 3.3 g/dL (3.4-4.8); ASPARTATE AMINOTRANSFERASE 20 U/L (10-37); FREE T4 (FREE THYROXINE) 0.9 ng/dL (0.6-1.6); TOTAL BILIRUBIN 0.5 mg/dL (0.0-1.0)
[2016-10-19] MEDS ORDERED: PIPERACILLIN/TAZO 3.375 GM in NS 50 ML IV ONE (18:30)
[2016-10-19 18:49] LABS: BILIRUBIN,URINE NEGATIVE (NEGATIVE); BLOOD, URINE NEGATIVE (NEGATIVE); CLARITY/URINE CLEAR (CLEAR); COLOR,URINE YELLOW (YELLOW); GLUCOSE,URINE NEGATIVE (NEGATIVE); KETONES,URINE NEGATIVE (NEGATIVE); LEUKOCYTE ESTERASE ,URINE NEGATIVE (NEGATIVE); NITRITE, URINE NEGATIVE (NEGATIVE); PROTEIN URINE NEGATIVE (NEGATIVE); UROBILINOGEN,URINE 0.2 (0.2-1.0)
[2016-10-19] MEDS ORDERED: PIPERACILLIN/TAZOBACTAM 3.375 GM/VIAL (ZOSYN) IV ONE (18:57)
[2016-10-19 19:44] VITALS: BP_SYST 131
[2016-10-19] MEDS: D5NS 1,000 ML IV SCH (20:44)
[2016-10-19 20:45] VITALS: BP_SYST 131
[2016-10-19] MEDS ORDERED: NON-FORMULARY MEDICATION (Ranitidine Hcl 150 MG) PO SCH (23:30)
[2016-10-19] MEDS ORDERED: DIPHENHYDRAMINE INJ 50 MG/ML VIAL IVP PRN (23:30)
[2016-10-19] MEDS ORDERED: IBUPROFEN 200 MG TABLET PO SCH (23:30)
[2016-10-19] MEDS ORDERED: ONDANSETRON HCL 4 MG/2 ML VIAL IVP PRN (23:30)
[2016-10-19] MEDS ORDERED: LORazepam 1 MG TABLET PO PRN (23:30)
[2016-10-20 00:13] VITALS: BP_SYST 121
[2016-10-20 00:47] VITALS: BP_SYST 121
[2016-10-20] MEDS ORDERED: DIPHENHYDRAMINE HCL 50 MG CAPSULE PO PRN (02:00)
[2016-10-20] MEDS ORDERED: IBUPROFEN 200 MG TABLET PO PRN ×2 (04:30→04:45)
[2016-10-20 06:05] VITALS: BP_SYST 137
[2016-10-20] MEDS ORDERED: LEVOTHYROXINE SODIUM 0.05 MG TABLET PO SCH (07:00)
[2016-10-20 07:38] LABS: BASOPHILS % (AUTO) 0.2 % (0.0-2.0); EOSINOPHILS # (AUTO) 0.2 K/uL (0.0-0.4); EOSINOPHILS % (AUTO) 2.5 % (0.0-4.0); HEMOGLOBIN 10.3 g/dL (12.0-16.0); LYMPHOCYTES # (AUTO) 1.2 K/uL (1.0-5.5); LYMPHOCYTES % (AUTO) 13.4 % (20.5-51.5); MEAN CORPUSCULAR HEMOGLOBIN 30 pg (27-31); MEAN CORPUSCULAR HGB CONC 33 % (32-36); MEAN CORPUSCULAR VOLUME 89 fL (79.0-98.0); MONOCYTES # (AUTO) 0.7 K/uL (0.0-1.0); MONOCYTES % (AUTO) 7.6 % (1.7-9.3); NEUTROPHILS % (AUTO) 76.3 % (40.0-70.0); PLATELET COUNT (AUTO) 295 K/uL (130-430)
[2016-10-20 08:02] LABS: WHITE BLOOD COUNT (AUTO) 9.1 K/uL (4.8-10.8)
[2016-10-20 08:04] LABS: ALANINE AMINOTRANSFERASE 20 U/L (12-78); ALBUMIN 2.7 g/dL (3.4-4.8); ANION GAP 5 (5-15); ASPARTATE AMINOTRANSFERASE 17 U/L (10-37); CALCIUM 8.7 mg/dL (8.4-11.0); CHLORIDE 102 mmol/L (98-107); CREATININE 1.12 mg/dL (0.55-1.30); GLUCOSE 140 mg/dL (70-99); POTASSIUM 3.3 mmol/L (3.5-5.1); SODIUM SERUM 136 mmol/L (136-145); TOTAL BILIRUBIN 0.6 mg/dL (0.0-1.0); UREA NITROGEN, BLOOD 16 mg/dL (8-21)
[2016-10-20] MEDS ORDERED: amLODIPine BESYLATE 5 MG TABLET PO SCH (09:00)
[2016-10-20] MEDS ORDERED: LACTOBACILLUS RHAMNOSUS GG 1 CAP CAPSULE PO SCH (09:00)
[2016-10-20] MEDS ORDERED: CHOLECALCIFEROL (VITAMIN D3) 2,000 UNIT TABLET PO SCH (09:00)
[2016-10-20] MEDS ORDERED: ASPIRIN 81 MG TAB.CHEW PO SCH (09:00)
[2016-10-20] MEDS ORDERED: ASPIRIN 325 MG TABLET PO SCH (09:00)
[2016-10-20] MEDS ORDERED: ATORVASTATIN 20 MG TABLET PO SCH (09:00)
[2016-10-20] MEDS ORDERED: CLOPIDOGREL BISULFATE 75 MG TABLET PO SCH (09:00)
[2016-10-20] MEDS ORDERED: FLUTICASONE/VILANTEROL 1 EACH BLST.W.DEV INH SCH (09:00)
[2016-10-20] MEDS ORDERED: PREDNISONE 5 MG TABLET PO SCH (09:00)
[2016-10-20] MEDS ORDERED: PROPRANOLOL HCL 10 MG TABLET (INDERAL) PO SCH (09:00)
[2016-10-20] MEDS ORDERED: ROSUVASTATIN CALCIUM 5 MG/TAB (CRESTOR) PO SCH (09:00)
[2016-10-20] MEDS ORDERED: LOSARTAN POTASSIUM 50 MG TABLET (COZAAR) PO SCH (09:00)
[2016-10-20] MEDS: D5NS 1,000 ML IV SCH (09:34)
[2016-10-20 09:53] VITALS: BP_SYST 118
[2016-10-20 11:34] VITALS: BP_SYST 105
[2016-10-20] MEDS ORDERED: POTASSIUM CHLORIDE 20 MEQ TAB.PRT.SR PO ONE (13:30)
[2016-10-20 13:34] VITALS: BP_SYST 105
[2016-10-20] MEDS ORDERED: MONTELUKAST 10 MG TABLET PO SCH (18:00)
== END 2016-10-20 14:30 | disposition home or self-care (01) | DRG 607 ==
LOC: SED 15:39 → SMU 19:16
PROVIDERS: ADMIT Internal Medicine Hospice and Palliative Medicine; ATTEND Internal Medicine Hospice and Palliative Medicine
DX: L27.0 Generalized skin eruption due to drugs and medicaments taken internally (principal); T37.0X5A Adverse effect of sulfonamides, initial encounter; R30.0 Dysuria; R00.0 Tachycardia, unspecified; D86.9 Sarcoidosis, unspecified; D72.829 Elevated white blood cell count, unspecified; I25.10 Atherosclerotic heart disease of native coronary artery without angina pectoris; E03.9 Hypothyroidism, unspecified; Z87.440 Personal history of urinary (tract) infections; Z95.1 Presence of aortocoronary bypass graft; Z86.19 Personal history of other infectious and parasitic diseases; Z88.8 Allergy status to other drugs, medicaments and biological substances; Y92.89 Other specified places as the place of occurrence of the external cause
CPT/HCPCS: 36415; 71010; 74000-TC; 80053; 81003; 83605; 83880; 84439; 84484; 85007; 85025; 85027; 85610-TC; 87040-TC; 87081; 93005; 96365; 96375; 99285; J2405; J2543; J7042; J7512; Q0163

== ENCOUNTER 2018-10-21 17:14 | Emergency (ER) | payer OTHER ==
[~2018-10-21] VITALS: Ht 162.6 cm; Wt 76.7 kg
[~2018-10-21 17:14] MED LIST changes: +ASPI-1155 PO; +ASPI-989 PO; -ASPI325T2 PO; -ASPI81TA2 PO; -LEVO50TA77 PO; -LOSA50TA20 PO; +LOSA50TA28 PO; +SYN50 PO
[2018-10-21 17:18] VITALS: BP_SYST 136
[2018-10-21] MEDS ORDERED: GLU500 PO (19:09)
[2018-10-21] MEDS ORDERED: NEU100 PO (19:09)
[2018-10-21] MEDS ORDERED: ALEN70TA27 PO (19:09)
[2018-10-21 19:45] VITALS: BP_SYST 132
[2018-10-21] MEDS ORDERED: BACITRACIN 1 GM OINT TP ONE (19:45)
== END 2018-10-21 19:45 | disposition home or self-care (01) ==
LOC: SED 17:14
DX: I73.89 Other specified peripheral vascular diseases (principal); E11.9 Type 2 diabetes mellitus without complications; I10 Essential (primary) hypertension; Z86.79 Personal history of other diseases of the circulatory system; Z88.8 Allergy status to other drugs, medicaments and biological substances; Z79.82 Long term (current) use of aspirin; Z79.899 Other long term (current) drug therapy
CPT/HCPCS: 99283